=== PATIENT | male | born 1940 | race Caucasian/White ===

== ENCOUNTER 2018-02-01 06:23 | Observation (INO) | payer MEDICARE, OTHER, SELFPAY ==
[2018-02-01] VITALS (12 sets, daily range): BP systolic 142–170; BP diastolic 66–105; PULSE 55–89; RESP 15–18; TEMP 35.8–36.6; O2SAT 95–98; BMI 29.9; BMI 28.0; BMI 28.1
--- NOTE | 2018-02-01 06:31 | CT_ITS ---
STUDY: CT BRAIN WITHOUT CONTRAST REASON FOR EXAM: Male, 78 years old. Headache RADIATION DOSAGE (If Supplied By Facility): CTDIvol = ( 44.99 ) mGy, DLP = ( 812.98 ) mGycm TECHNIQUE: Transaxial CT imaging of the brain was performed without administration of intravenous contrast material. Individualized dose optimization techniques were used for this CT. COMPARISON: None. FINDINGS: Normal soft tissue structures. Normal calvarium. There is moderate cerebral atrophy with widening of the extra-axial spaces and ventricular dilatation. There are areas of decreased attenuation within the white matter tracts of the supratentorial brain, consistent with microvascular disease changes. Normal basal ganglia and thalami. Normal brainstem. There is moderate cerebellar atrophy. There is no intracranial hemorrhage. There are no findings of an acute ischemic infarction. Normal visualized paranasal sinuses. CT/Brain/Head without Contrast IMPRESSION: There is chronic involutional and ischemic change. There is NO hemorrhage, edema, mass, mass effect or midline shift. Electronically Signed: Lane Rodriguez MD at 7:18 EDT , Service support ,
--- NOTE | 2018-02-01 06:31 | EKG12_ITS ---
Test Reason : Blood Pressure : / mmHG Vent. Rate : 074 BPM Atrial Rate : 074 BPM P-R Int : 170 ms QRS Dur : 138 ms QT Int : 456 ms P-R-T Axes : 042 -51 -02 degrees QTc Int : 506 ms Sinus rhythm with Premature atrial complexes Right bundle branch block Left anterior fascicular block Bifascicular block Abnormal ECG Confirmed by MISSY WALSH, SANDRA ([id number]), science editor TERI PENA ([id number] on 02/04/2018 1:43:39 PM Referred By: ROMA Confirmed By:SANDRA LOUIS MD
[2018-02-01 06:41] LABS: Bedside Glucose 200 mg/dL (70-110)
--- NOTE | 2018-02-01 06:52 | ED.DCSUM_ITS ---
- ER Visit Summary Date of Service: 02/01/18 Chief Complaint: Arrived by ambulance with chief complaint of headache, nausea and vomiting, problems ambulating History of Present Illness: The patient is a 78 M who was awakened from sleep may be at 3 AM versus 4 AM with occipital headache, nausea and vomiting, diaphoresis problems with balance. He is a poor informant. Questions were asked multiple times. Presently he complains of occipital headache and not feeling right. After exiting the room I was told he complained of chest pain. He apparently has history of hypertension and is a former smoker. states he quit 20 years ago. Physical Examination: Vital signs noted and blood pressure is elevated 170/99. NIH is difficult to assess. He has a visual field cut uncertain whether he has a right superior quadrantanopsia versus right homonymous hemianopia. Even after demonstration to inform patient how to perform finger-nose to finger he initially was able to touch his nose then my finger on the right side; however after first attempt and with left upper extremity he would only touch my finger. He had difficulty touching the tip with the right side. He did not comprehend heel to reed. DTRs symmetric pros no clonus. Babinski testing patient withdraws. Multiple techniques to prevent withdrawal were unsuccessful. Test Results: EKG reveals a sinus rhythm with frequent premature atrial complexes. IA interval is 170 ms. QRS duration is 138 ms. There is evidence of a right bundle branch block and left anterior fascicular block. QT interval is slightly prolonged. CBC is unremarkable. Basic metabolic panel is significant for glucose 182. Wccwg-ka-cury glucose was 200. GFR is 60 with a creatinine 1.24. Coags are pending Emergency Department Course and Treatment: With history of abrupt onset of waking patient from sleep with vertigo visual disturbance need to evaluate for cerebellar hemorrhage versus posterior circulatory stroke. Since elderly past history uncertain CT of the head was obtained to evaluate for bleed any obvious stroke. CTA was not ordered since onset is unknown and NIH is low. Treatment Plan: Patient was made n.p.o. Stroke order set was initiated. Patient was taken to radiology suite after vomiting controlled to evaluate for hemorrhage versus ischemic event. Disposition: Admission to [facility] versus transfer, time of decision 06 Impression: 1. Vertigo with right-sided visual field cut suspect posterior circulatory stroke 2. Hypertension 3. Hyperglycemia This note was generated with Dragon dictation software. It may contain incorrect words, spelling, and punctuation that were not noted in review of the chart prior to signing ED Disposition - Plan for ED Patient: Chief Complaint: Headache Referrals: Sebastián Garcia MD [Primary Care Provider] -
[2018-02-01 06:53] LABS: Absolute Lymphocyte Count 0.81 X10^3/ul (0.83-4.51); Absolute Neutrophil Count 7.6 X10^3/uL (2.0-7.7); Eosinophil# 0.06 X10^3/uL; Eosinophils% 0.7 % (0-5); Hematocrit 41.1 % (40-54); Hemoglobin 14.1 g/dl (13.0-16.5); Lymphocyte # 0.81 X10^3/ul (4.0); Lymphocyte % 9.1 % (19-41); Mean Corp Hgb Conc 34.3 g/gl (32-36); Mean Corpuscular Volume 93.2 fL (80-94); Mean Platelet Vol. 9.8 fl (6.2-12.0); Monocyte# 0.34 X10^3/uL; Monocyte% 3.8 % (0-10); Neutrophil # 7.64 X10^3/uL (2.7-7.7); Neutrophil % 86.2 % (47-70); Platelet Count 189 K/mm3 (150-450); RBC Distribution Width CV 12.6 % (11.6-14.6); RBC Distribution Width SD 42.5 fl (35.1-43.9); Red Blood Count 4.41 M/mm3 (4.6-6.2); White Blood Count 8.9 K/mm3 (4.4-11.0)
[2018-02-01 06:54] LABS: BUN 26 mg/dL (7-18); Calcium,Total 8.5 mg/dL (8.5-10.1); Chloride 108 mmol/L (98-107); Creatinine, Serum 1.24 mg/dL (0.70-1.30); EST Glomerular Filtration Rate 60 mL/min (>60); Est Glom Filt Rate - Afr Amer 72 mL/min (>60); Estimated Creatinine Clearance 45.16 ml/min; Glucose 182 mg/dL (74-106); Potassium 3.9 mmol/L (3.5-5.1); Sodium Level 140 mmol/L (136-145)
[2018-02-01 06:55] LABS: Anion Gap 8 (5-15)
[2018-02-01] MEDS: Ondansetron 4 MG/2 ML Vial IV (06:56)
[2018-02-01 06:58] LABS: POSITIVE COUNT NO; POSITIVE DIFFERENTIAL NO; POSITIVE MORPHOLOGY NO
[2018-02-01 07:04] LABS: International Normalized Ratio 1.1; Prothrombin Time (Protime)PT. 14.1 SECONDS (11.7-14.9)
[2018-02-01 07:05] LABS: Partial Thromboplast Time 25.9 Seconds (24.1-36.2)
--- NOTE | 2018-02-01 08:04 | MRI_ITS ---
STUDY: MRI BRAIN WITHOUT CONTRAST REASON FOR EXAM: Male, 78 years old. CVA. Headache. Blurred vision. Dizzy. TECHNIQUE: Standardized multiplanar fat and water weighted pulse sequences were obtained. COMPARISON: CT head without contrast 02/01/2018. FINDINGS: No restricted diffusion to suspect acute or subacute ischemic infarct. Normal size of the ventricles and extra-axial spaces for the patient's age. Multiple periventricular white matter T2 FLAIR hyperintensity foci in both cerebral hemispheres. They're confluent in the forceps major. 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 Normal bilateral basal ganglia. Normal thalami. There is no extra-axial fluid accumulation. Normal flow voids within the major intracranial circulation suggesting patency by spin echo criteria. Normal sella turcica, pituitary gland, infundibular stalk, optic chiasm and hypothalamus. Normal tectal plate and pineal gland. Normal midbrain, annita and medulla. Normal cerebellum. Normal basal cisterns. Normal bilateral temporal bones. Normal bilateral internal auditory canals. No demonstrated orbital abnormality, within the constraints of a routine brain study. Normal visualized paranasal sinuses. Normal calvarium and skull base. Normal visualized soft tissue structures. Normal visualized upper cervical spine. MRI/Brain without Contrast IMPRESSION: 1. No MRI evidence of acute or subacute ischemic infarct. 2. Chronic white matter ischemic changes in both cerebral hemispheres. 3. 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 Electronically Signed: Toby Smith MD at 12:37 EDT , Service support ,
--- NOTE | 2018-02-01 08:04 | ECHOD_ITS ---
Reason For Study: TIA/Stroke Procedure This was a 2D Doppler, Color Flow transthoracic echocardiogram. Exam performed portable in patient room. Left Ventricle Normal LV size. Left ventricular systolic function is normal. The estimated ejection fraction is 60 %. Transmitral diastolic flow velocities suggest mild (stage 1) diastolic dysfunction (reversed pattern). No regional wall motion abnormalities noted. Right Ventricle Normal RV size. Normal systolic function. Atria Normal left atrium. Normal right atrium. Hypermobile atrial septum. Mitral Valve Normal mitral valve. Mild (1+) eccentric mitral valve insufficiency. Tricuspid Valve Normal tricuspid valve. Mild (1+) tricuspid valve insufficiency. Pulmonary artery systolic pressure is 34 mmHg. Aortic Valve Normal aortic valve. Trisinus/trileaflet aortic valve. Mild (1+) aortic valve insufficiency. Pulmonic Valve Normal pulmonic valve. Great Vessels Mildly dilated aortic root. The pulmonary artery is normal size. Normal inferior vena cava. Pericardium/Pleural No pericardial effusion. Medication Performed a rapid injection of agitated mix of 9 cc saline and 1cc air to assess for atrial septal defect. MMode/2D Measurements & Calculations LVIDd: 5.4 cm IVSd: 1.3 cm Ao root diam: 3.6 cm LVIDs: 3.9 cm LVPWd: 1.1 cm RVDd: 2.7 cm FS: 27.8 % LAV(MOD-bp): 55.0 ml LVAd ap4: 35.3 cm2 SV(MOD-sp4): 66.0 ml LAV(MOD-bp) Indexed: 27.9 ml/m2 EDV(MOD-sp4): 115.9 ml LAV(MOD-sp2): 51.8 ml EDV(sp4-el): 118.3 ml LAV(MOD-sp4): 57.8 ml LVAs ap4: 19.9 cm2 ESV(MOD-sp4): 49.9 ml ESV(sp4-el): 46.4 ml EF(MOD-sp4): 56.9 % EF(sp4-el): 60.8 % SV(sp4-el): 71.9 ml LA A4 area: 20.5 cm2 RA A4 area: 17.3 cm2 Doppler Measurements & Calculations MV E max demarcus: 69.3 cm/sec Lat Peak E' Demarcus: 6.1 cm/sec Med Peak E' Demarcus: 5.5 cm/sec MV A max demarcus: 125.9 cm/sec E/E' lat: 11.3 E/E' med: 12.6 MV E/A: 0.55 Ao V2 max: 152.9 cm/sec AI max demarcus: 471.4 cm/sec LV V1 max: 108.4 cm/sec Ao max P.4 mmHg AI max P.9 mmHg LV V1 max P.7 mmHg Ao V2 mean: 107.3 cm/sec AI dec slope: 172.5 cm/sec2 Ao mean P.0 mmHg AI P1/2t: 800.3 msec Ao V2 VTI: 33.4 cm PA V2 max: 105.7 cm/sec PI end-d demarcus: 111.5 cm/sec TR max demarcus: 264.7 cm/sec TR max P.0 mmHg Interpretation Summary Hypermobile atrial septum. Normal LV size. Left ventricular systolic function is normal. The estimated ejection fraction is 60 %. Transmitral diastolic flow velocities suggest mild (stage 1) diastolic dysfunction (reversed pattern). Mild (1+) eccentric mitral valve insufficiency. Mild (1+) tricuspid valve insufficiency. Ordering Physician: Eladia Chau Referring Physician: Sebastián Garcia Performed By: Maria Luz Grover, MARLENE, RVT
--- NOTE | 2018-02-01 08:04 | MRI_ITS ---
STUDY: MRA OF THE HEAD WITHOUT CONTRAST REASON FOR EXAM: Male, 78 years old. Blurred vision, headache and dizziness. TECHNIQUE: 3-D digj-sa-iramek (TOF) imaging was performed with MIPs. The study was performed unenhanced. COMPARISON: CTA of the head dated February 01, 2018. FINDINGS: Normal bilateral petrous carotid arteries. Normal right cavernous carotid artery with a normal supraclinoid bifurcation. Normal left cavernous carotid artery with a normal supraclinoid bifurcation. There is hypoplastic development of the right A1 segment of the anterior cerebral arteries with an atretic but intact artery. Normal left A1 segments of the anterior cerebral artery. Normal intact anterior communicating artery (ACOM). Normal bilateral A2 segments of the anterior cerebral arteries. There is irregularity of the right M1 and M2 branches with minimal luminal narrowing, suggesting atherosclerotic plaque formation, without an occlusion. There is irregularity of the left M1 and M2 branches with minimal luminal narrowing, suggesting atherosclerotic plaque formation, without an occlusion. There is a persistent origin of the right posterior cerebral artery with absence of the P1 segment of the right posterior cerebral artery. Normal left posterior communicating artery (PCOM). There is limited visualization of the vertebral arteries particularly the right which is atretic. This is better seen on the recent CTA. The left vertebral artery is dominant. There is thrombus within the distal left intradural vertebral artery. Much of the LEFT V3 and V4 segment does not have normal flow and is not well seen on this study. Thrombus is also visible in the basilar artery. There is limited visualization of the superior cerebellar arteries. There is absence of the right P1 segment of the posterior cerebral arteries with a normal left P1 segment. Normal visualized bilateral P2 and P3 segments of the posterior cerebral arteries. There is no demonstrated aneurysm of the telida of [place]. There are involutional changes of the brain. MRI/MRA Head ONLY without Contrast IMPRESSION: 1. Thrombus is visible in the distal left V4 segment with limited visualization of the left V3 and most of the V4 segment. 2. Thrombus is visible in the proximal basilar artery. N.B. : The above information has been verbally conveyed by Gabby Haskins MD to Dr. Kandi MD, on 02/01/2018 11:48:27 (ET). Electronically Signed: Gabby Haskins MD at 11:42 EDT , Service support ,
--- NOTE | 2018-02-01 08:04 | MRI_ITS ---
STUDY: MRA NECK WITHOUT CONTRAST REASON FOR EXAM: Male, 78 years old. CVA. Headache. Blurred vision. Dizziness. TECHNIQUE: Source images were obtained, MIPs were performed. The study was performed unenhanced. COMPARISON: None. FINDINGS: RIGHT CAROTID ARTERIES: Normal right common carotid artery (CCA). Normal right internal carotid bulb. Normal origin of the right internal carotid (ICA) artery without a hemodynamically significant stenosis. Normal visualized cervical portion of the right internal carotid artery. Normal origin of the right external carotid artery (ECA). LEFT CAROTID ARTERIES: Normal left common carotid artery (CCA). Normal left internal carotid bulb. Normal origin of the left internal carotid (ICA) artery without a hemodynamically significant stenosis. Normal visualized cervical portion of the left internal carotid artery. Normal origin of the left external carotid artery (ECA). VERTEBRAL ARTERIES: Normal right vertebral artery. Limited visualization of the left vertebral artery. MRI/MRA Neck without Contrast IMPRESSION: 1. Limited MRA neck due to motion. 2. Normal bilateral common carotid arteries, bilateral common carotid bifurcations and bilateral cervical internal carotid arteries. 3. Normal right vertebral artery. 4. Suboptimal visualization of the left vertebral artery. Electronically Signed: Toby Smith MD at 12:39 EDT , Service support ,
--- NOTE | 2018-02-01 08:27 | PCM.HP.STD ---
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), not intractable (4) HTN (hypertension) Status: Chronic Qualifiers: Hypertension type: essential hypertension Qualified Code(s): I10 - Essential (primary) hypertension (5) HLD (hyperlipidemia) Status: Chronic Qualifiers: Hyperlipidemia type: unspecified Qualified Code(s): E78.5 - Hyperlipidemia, unspecified (6) BPH (benign prostatic hyperplasia) Status: Chronic Qualifiers: Lower urinary tract symptom presence: unspecified whether lower urinary tract symptoms present Qualified Code(s): N40.0 - Benign prostatic hyperplasia without lower urinary tract symptoms History of Present Illness Date of Admission: 02/01/18 Chief Complaint: Visual field defects, headache, instability The patient is a 78 y/o M w/ PMHx: HTN, HLD, BPH, Former Tobacco use who presents to the [facility] ED on 02/01/18 with history of onset at ~ 3-4 am, awakening him from sleep severe aching, pulsing in the top and posterior head BL, waxing and waning with with difficulty with vision on the right side noted to be blurry per patient, instability with balance issues with attempts to walk prompting eventual transition to the ED. He also noted that with onset of the symptoms he had nausea, emesis as well as diaphoresis. He was able to answer orientation questions in the ED but this required asking the same question several times and he did admit to not feeling his baseline self. In the emergency room workup included T 96.5, heart rate 73, BP 160/105, respiratory rate 15, 95% on room air, CBC unremarkable, coags unremarkable, BMP with glucose 182 with follow-up heme globin A1c 5.8%, troponin less than 0.015, TSH 0.89, EKG with right bundle branch block and left anterior fascicular block with no acute findings of ischemia, CT of the head with chronic changes. In the ED patient administered normal saline, Zofran. Past Medical History Past Medical History (Chronic Problems): Chronic Problems HTN (hypertension) (Chronic) HLD (hyperlipidemia) (Chronic) BPH (benign prostatic hyperplasia) (Chronic) Allergies No Known Allergies Allergy (Verified 02/01/18 06:25) Home Medications: Ambulatory Orders Medication Instructions Recorded Amlodipine Besylate [Norvasc] 2.5 mg PO DAILY 02/01/18 Atorvastatin Calcium [Lipitor] 10 mg PO DAILY 02/01/18 Hydroxyzine HCl 25 mg PO Q8H PRN 02/01/18 Tamsulosin HCl [Flomax] 0.4 mg PO QHS 02/01/18 Surgical History: appendectomy Psychiatric History: No pertinent psych hx Lives: Spouse/ Significant Other - Patient has a girlfriend with whom he intermittently lives, they each have a house and change intermittent. Smoking Status: Former smoker - Quit 20-30 years prior. Tobacco Use: Non-smoker Alcohol: None Drugs: None - *Family History Maternal History Items: Cancer - Mother w/ history of Breast CA. Paternal History Items: - - Father w/ history of MVA at young age w/ complications related. Review of Systems Constitutional: Reports: Malaise, Weakness, Fatigue HEENT: Reports: Head Aches, Visual Changes. Denies: Sinus Congestion, Sinus Drainage Cardiovascular: Denies: Chest Pain, Palpitations Respiratory: Denies: Cough, Shortness of breath at rest, Sputum production Gastrointestinal: Reports: Nausea, Vomiting. Denies: Abdominal Pain Genitourinary: Denies: Dysuria Musculoskeletal: Denies: Joint Pain, Joint Tenderness Skin: Denies: Rash, Wounds Neurological: Reports: Balance problems, Confusion. Denies: Focal weakness, Numbness, Tingling Psychiatric: Denies: Anxiety, Depression, Homicidal Ideations, Suicidal Ideations Hematologic/ Lymphatic: Denies: Easy Bruising, Easy Bleeding VTE Information - Inpt Only VTE Present on Admission: No VTE Mechan Device Prophylaxis: SCD's VTE Pharm Prophylaxis ordered?: Yes Patient Problems: Active and Suspected Problems TIA (transient ischemic attack) (Acute) Vertigo (Acute) Headache (Acute) Subjective: Seated upright in ED bed, fatigued appearance, notes headache returning and points to the top and posterior aspect of his head. Objective: Physical Examination: General: awake, alert, oriented x 3/4 with incorrect year and cooperative, seated upright in the ED, does note ongoing headache and appears mildly uncomfortable. Skin: normal color, turgor, no icterus, cyanosis. HEENT: AT/NC, EOMI, PERRLA, only dry MM, no carotid bruits or JVD noted. Lungs: Diminished breath sounds bilaterally, poor effort, no rales, ronchi or wheezing. Heart: Regular rate and rhythm; no gallop, rub audible. Abdomen: soft, NTTP, ND, normal BS, no HSM. Extremities: no cyanosis, clubbing, or edema. Neurological: patient awake, alert, oriented x 3/4; cognitive function mildly reduced, is not currently baseline intact; pupils equally reactive to light and accomodation; cranial nerves II-XII grossly normal, peripheral arcos intact currently although prior ED physician did have concern about right lateral arcos, sensation appropriate, finger to nose and heel to reed appropriate, strength intact, no focal deficits, negative right Babinski, equivocal left Babinski. Psychiatric: affect appears to be flat, no acute evidence of depressive or anxiety feelings. - Physical Exam Vital Signs Temp Pulse Resp BP Pulse Ox 96.5 F L 89 16 158/99 H 97 02/01/18 06:25 02/01/18 07:31 02/01/18 07:31 02/01/18 07:31 02/01/18 07:31 Oxygen Flow Rate (L/min) 2 Oxygen Delivery Method Nasal Cannula Weight: 184 lb 8.43 oz Body Mass Index (BMI) 28.0 Finger Stick Blood Glucose 200 Laboratory Tests Past 24 Hrs 02/01/18 02/01/18 02/01/18 06:30 06:30 06:30 WBC 8.9 RBC 4.41 L Hgb 14.1 Hct 41.1 MCV 93.2 MCH 32.0 MCHC 34.3 RDW 12.6 RDW Differential 42.5 Plt Count 189 MPV 9.8 Immature Gran % (Auto) 0.200 Neut % (Auto) 86.2 H Lymph % (Auto) 9.1 L Mobile % (Auto) 3.8 Eos % (Auto) 0.7 Baso % (Auto) 0.0 Absolute Neuts (auto) 7.6 Absolute Lymphs (auto) 0.81 L Total Counted Not Reportable PT 14.1 INR 1.1 APTT 25.9 Sodium 140 Potassium 3.9 Chloride 108 H Carbon Dioxide 24.0 Anion Gap 8 BUN 26 H Creatinine 1.24 Estim Creat Clear Calc 45.16 Est GFR (MDRD) Af Amer 72 Est GFR (MDRD) Non-Af 60 BUN/Creatinine Ratio 21.0 H Glucose 182 H Hemoglobin A1c Calcium 8.5 Magnesium Troponin I < 0.015 TSH 02/01/18 02/01/18 06:30 06:30 WBC RBC Hgb Hct MCV MCH MCHC RDW RDW Differential Plt Count MPV Immature Gran % (Auto) Neut % (Auto) Lymph % (Auto) Mobile % (Auto) Eos % (Auto) Baso % (Auto) Absolute Neuts (auto) Absolute Lymphs (auto) Total Counted PT INR APTT Sodium Potassium Chloride Carbon Dioxide Anion Gap BUN Creatinine Estim Creat Clear Calc Est GFR (MDRD) Af Amer Est GFR (MDRD) Non-Af BUN/Creatinine Ratio Glucose Hemoglobin A1c Pending Calcium Magnesium Pending Troponin I TSH Pending POC Glucose 02/01/18 06:32 POC Glucose 200 H Assessment/Plan All Active Problems TIA (transient ischemic attack) (Acute) Vertigo (Acute) Headache (Acute) The patient is a 78 y/o M w/ PMHx: HTN, HLD, BPH, Former Tobacco use who presents to the [facility] ED on 02/01/18 with history of onset at ~ 3-4 am, awakening him from sleep severe aching, pulsing in the top and posterior head BL, waxing and waning with with difficulty with vision on the right side noted to be blurry per patient, instability with balance issues with attempts to walk prompting eventual transition to the ED. (1) Visual Field Defects, Transient, Headache, Imbalance concerning for TIA/CVA versus Vertigo: ED evaluation w/ T 96.5, heart rate 73, BP 160/105, respiratory rate 15, 95% on room air, CBC unremarkable, coags unremarkable, BMP with glucose 182 with follow-up heme globin A1c 5.8%, troponin less than 0.015, TSH 0.89, EKG with right bundle branch block and left anterior fascicular block with no acute findings of ischemia, CT of the head with chronic changes. Will admit to PCU, will obtain MRI Brain, MRA Head and Neck, ECHO, PT/OT/Speech/Nutrition evaluation per protocol. Will consult Neurology for evaluation. Will allow permissive HTN, maintain on asa, statin w/ AM FLP, fall precautions. Mag and TSH obtained, normal. (2) Hypertension: Permissive pending above work-up. (3) Hyperlipidemia: Continue home statin regimen, FLP to be obtained and alter regimen if appropriate. (4) BPH: Continue home flomax regimen. (5) Former Tobacco use: Encouraged continued tobacco cessation. (6) Hyperglycemia: Admission glucose 182, HgbA1c pending, nutrition consultation for education and teaching. (7) DVT Prophylaxis: SCDs, lovenox. Code Visit OBSV E&M: [id number] Initial observation care L3
[2018-02-01 08:29] LABS: Hemoglobin A1c 5.8 % (4.2-6.3)
[2018-02-01] MEDS: 0.9% Normal Saline 1,000 ML 100 ML IV ×2 (08:35→18:42)
[2018-02-01] MEDS: Acetaminophen 325 MG Tablet 650 MG PO (08:35)
[2018-02-01 08:37] LABS: Thyroid Stim Hormone (TSH) 0.89 uIU/mL (0.358-3.74)
--- NOTE | 2018-02-01 09:52 | CT_ITS ---
STUDY: CTA OF THE BRAIN REASON FOR EXAM: Male, 78 years old. Basilar stenosis, occlusion, headache, dizziness RADIATION DOSAGE (If Supplied By Facility): CTDIvol = ( 24.82 ) mGy, DLP = ( 837.23 ) mGycm TECHNIQUE: CT angiography was performed with a multi-detector CT scanner. Data acquisition was obtained from the skull base through the vertex following intravenous administration of 100 ml of Isovue-370. MIP images were reconstructed from the axial data set. Post-processing of the angiographic images was performed, with multiplanar reformation and 3D reconstruction. Individualized dose optimization techniques were used for this CT. COMPARISON: CTA neck same date. MRA neck and head and MRI brain same date. CT head 10 1936. FINDINGS: There is mild calcified plaque of the carotid bulbs and bifurcations without contrast stenosis or dissection. Normal right vertebral artery cervical and intracranial portions. There is occlusion of the left vertebral artery in its mid cervical course. It is reconstituted within the transcranial segment 3 via collateral arteries. It is patent thereafter to the basilar artery intracranially. There is a tubular filling defect within the uppermost portion of the intracranial segment 4 left vertebral artery just proximal to the junction with the basilar artery. This measures approximately 5.6 x 3 mm and is most consistent with a focus of thrombus or atheroma contributing to moderate stenosis of the vessel. The right-sided intracranial vertebral artery is diminutive and terminates into small cerebellar pontine divisions. The basilar artery is normal. The posterior cerebral arteries are normal. The communicating arteries, anterior and middle cerebral arteries are normal. There are mild to moderate features of age-related atrophy and chronic micro-vascular ischemic disease of the white matter. 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 There is no evidence of posterior fossa infarct at this time. The dural venous sinuses and major venous tributaries enhance and arborizes normally. 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 Filling defect within the uppermost portion of the left vertebral artery just proximal to the junction with the basilar artery. The filling defect measures approximately 5.6 x 3 mm. This may be a fragment of atheroma, or thrombus. It does not occlude the vessel. Moderate stenosis. Potentially at risk for distal embolization. Electronically Signed: Santos Lyles, at 11:44 EDT Tel , Service support ,
--- NOTE | 2018-02-01 09:52 | CT_ITS ---
STUDY: CTA NECK WITH CONTRAST REASON FOR EXAM: Male, 78 years old. Evaluate for basilar artery stenosis. Patient has headache and dizziness. RADIATION DOSAGE (If Supplied By Facility): CTDIvol = ( 24.82 ) mGy, DLP = ( 837.23 ) mGycm TECHNIQUE: CT angiography with multi-detector data acquisition was performed from the aortic arch to the skull base following intravenous administration of 100 ml of Isovue 370 contrast. MIP images were reconstructed from the axial data set. Post-processing of the angiographic images was performed, with multiplanar reformation and 3D reconstruction. Individualized dose optimization techniques were used for this CT. COMPARISON: None. FINDINGS: AORTIC ARCH: There is atherosclerotic calcific plaque formation of the aortic arch and great vessels arising from the aortic arch, without a hemodynamically significant stenosis. There is a normal origin of the brachiocephalic, left common carotid, and left subclavian arteries. The left vertebral artery arises from the aortic arch. RIGHT CAROTID ARTERIES: Normal right common carotid artery (CCA). There is mild atherosclerotic plaque formation with minimal narrowing of the right carotid bulb. There is mild atherosclerotic plaque formation of the origin of the right internal carotid artery with less than 50% cross sectional diameter stenosis. There is atherosclerotic tortuous elongation of the cervical portion of the right internal carotid artery. Normal origin of the right external carotid artery (ECA). LEFT CAROTID ARTERIES: Normal left common carotid artery (CCA). There is mild atherosclerotic plaque formation with minimal narrowing of the left carotid bulb. There is mild atherosclerotic plaque formation of the origin of the left internal carotid artery with less than 50% cross sectional diameter stenosis. There is atherosclerotic tortuous elongation of the cervical portion of the left internal carotid artery. Normal origin of the left external carotid artery (ECA). VERTEBRAL ARTERIES: There is apparent thrombosis of the left cervical vertebral artery for most of its course. The origin of the left vertebral artery does enhance but there is no appreciable enhancement once it enters the cervical foramina. The right vertebral artery is atretic but patent throughout the neck. NECK ANATOMY: Normal bilateral parotid glands. Normal bilateral strategic planner spaces. Normal bilateral parapharyngeal spaces. Normal bilateral carotid spaces. Normal bilateral sublingual and submandibular glands and spaces. Normal visualized nasopharynx. Normal retropharyngeal space. Normal perivertebral space. Normal visualized bilateral faucial tonsils. The visualized tongue, tongue base and oropharynx are normal. The visualized cervical lymph nodes (levels I-) are within normal size limits, and maintain normal morphology. There is no demonstrated solid or cystic mass lesion. There is no abnormal contrast enhancement. Normal epiglottis, bilateral vallecula and hypopharynx. The pre-epiglottic and paraglottic adipose spaces are normal. Normal visualized bilateral piriform sinuses, aryepiglottic folds, vocal cords, and arytenoid-cricoid articulations. Normal subglottic trachea. There is enlargement of the left lobe of thyroid with heterogeneous attenuation suggesting a goiter. There are several nodular areas within the left lobe of thyroid. Normal visualized pulmonary apices. Normal visualized paranasal sinuses. The bones appear osteopenic. There is multilevel degenerative disc disease and degenerative arthropathy of the cervical spine. There is a small right maxillary mucous retention cyst. CT/CTA Neck W/WO Contrast IMPRESSION: 1. Apparent almost complete thrombosis of the LEFT cervical vertebral artery. 2. No CTA evidence for dissection. Electronically Signed: Gabby Haskins MD at 11:27 EDT , Service support ,
[2018-02-01 11:25] LABS: Bedside Glucose 128 mg/dL (70-110)
--- NOTE | 2018-02-01 11:52 | CASEMGMT ---
Transfer Note [employer] facilites using [employer] website, [employer], [facility], [facility], .
[2018-02-01] MEDS: Famotidine 20 MG Tablet PO (11:56)
[2018-02-01] MEDS: Enoxaparin 40 MG/0.4 ML Syringe SC (11:56)
[2018-02-01] MEDS: Aspirin 81 MG TAB.CHEW PO (11:56)
--- NOTE | 2018-02-01 11:58 | PCM.DC.SUM ---
Discharge Date and Diagnosis - Problem List Patient Problems: Active and Suspected Problems TIA (transient ischemic attack) (Acute) Vertigo (Acute) Headache (Acute) Date of Admission: 02/01/18 Date of Discharge: 02/01/18 - Primary Discharge Diagnosis (1) Visual Field Defects, Transient, Headache, Imbalance, no Acute Stroke, felt secondary to Thrombosis L Vertebral Artery proximal to the Junction with Basilar Artery with possible thrombus present and moderate stenosis w/ risk for distal embolization (2) Hypertension (3) Hyperlipidemia (4) BPH (5) Former Tobacco use (6) Hyperglycemia, stress response, normal HgBA1c - Secondary Discharge Diagnosis HTN (hypertension) (Chronic) HLD (hyperlipidemia) (Chronic) BPH (benign prostatic hyperplasia) (Chronic) Former Tobacco use Hospital Course and Treatment Imaging Results: 02/01/18 06:31 Brain/Head without Contrast [CT] Stat 02/01/18 08:04 Echo Complete [ECHO] Routine Brain without Contrast [MRI] Stat MRA Head ONLY without Contrast [MRI] Stat MRA Neck without Contrast [MRI] Stat 02/01/18 09:52 CTA Head W/WO Contrast [CT] Urgent CTA Neck W/WO Contrast [CT] Urgent Dr. Rooney Neurology Operations: None Procedures: 2-D Echocardiogram, EKG Summary of Care Provided: The patient is a 78 y/o M w/ PMHx: HTN, HLD, BPH, Former Tobacco use who presented to the [facility] ED on 02/01/18 with history of onset at ~ 3-4 am, awakening him from sleep severe aching, pulsing in the top and posterior head BL, waxing and waning with with difficulty with vision on the right side noted to be blurry per patient, instability with balance issues with attempts to walk prompting eventual transition to the ED. He also noted that with onset of the symptoms he had nausea, emesis as well as diaphoresis. He was able to answer orientation questions in the ED but this required asking the same question several times and he did admit to not feeling his baseline self. In the emergency room workup included T 96.5, heart rate 73, BP 160/105, respiratory rate 15, 95% on room air, CBC unremarkable, coags unremarkable, BMP with glucose 182 with follow-up heme globin A1c 5.8%, troponin less than 0.015, TSH 0.89, EKG with right bundle branch block and left anterior fascicular block with no acute findings of ischemia, CT of the head with chronic changes. In the ED patient administered normal saline, Zofran. The patient was admitted to PCU, obtained MRI Brain w/ no MRI evidence of acute or subacute ischemic infarct with chronic white matter ischemic changes in both cerebral hemispheres with old lacunar cystic infarct in the right posterior periventricular white matter, MRA Head with thrombus visible in the distal left V4 segment with limited visualization of the left V3 and most of the V4 segment, thrombus visible in the proximal basilar artery and Neck limited secondary to motion with normal bilateral common carotid arteries, bilateral common carotid bifurcations and bilateral cervical internal carotid arteries with a normal right vertebral artery with a suboptimal as visualization of the left vertebral artery, secondary to findings on MRA head obtained follow-up CTA head and neck per neurology direction with CTA head with thrombus with occlusion of the left vertebral artery, mid to upper cervical, reconstituting at the skull base via small collateral vessels, filling defect within the uppermost portion of the left vertebral artery just proximal to the junction with the basilar artery, measuring a proximally 5.6 x 3 mm possibly a fragment of atheroma or thrombus with moderate stenosis and potential for risk of distal embolization and CTA of the neck with the parents almost complete thrombosis of the left cervical vertebral artery with no CT evidence for dissection, ECHO ordered and obtained with results pending at transfer, PT/OT/Speech/Nutrition evaluation per protocol. Neurology consulted and evaluated patient with concern for findings on imaging therefore recommendation for transfer to tertiary facility. Upon discussion with tertiary facility and review of imaging patient was per their request administered Plavix load 300 mg p.o. x1 in addition to his aspirin 81 mg, hold on any blood pressure regimen and continuation of patient statin as well as IV fluids. Discussed patient status and concerns per neurology with family and patient in transfer to arranged. Patient and family were told that there may be no intervention performed but medical management pending neurology review of all imaging studies. Patient remained in similar presentation to admission with no neurological changes but ongoing complaints of headache. Home Medications: Medications to take at Discharge Amlodipine Besylate [Norvasc] 2.5 mg PO DAILY 02/01/18 Atorvastatin Calcium [Lipitor] 10 mg PO DAILY 02/01/18 Hydroxyzine HCl 25 mg PO Q8H PRN 02/01/18 Tamsulosin HCl [Flomax] 0.4 mg PO QHS 02/01/18 Primary Care Physician: Sebastián Garcia MD [Primary Care Provider] - Disposition: Acute care Hospital Minutes spent on discharge:: 60 Patient Condition:: Guarded Medical Necessity - Tobacco Use Smoking Status: Former smoker Meaningful Use Info Meaningful Use Diagnoses (Choose all that apply): None applicable Code Visit OBSV E&M: 09690 Observ/hosp same date L3
[2018-02-01] MEDS: Clopidogrel Bisulfate 300 MG Tablet PO (13:18)
--- NOTE | 2018-02-01 14:32 | CON.PCM_ITS ---
Problem List (1) Vertigo Status: Acute (2) VBI (vertebrobasilar insufficiency) Status: Acute Reason for Consult Date of Consultation: 02/01/18 Reason for Consultation: dizziness History of Present Illness: The patient is a 78 year old M with PMH HTN, HLD, BPH, H/O prostate cancer admitted with dizziness. Per patient he woke up this morning (02/01/18) with dizziness, had difficulty walking, also complaints of occipital WHITEHEAD, nausea and visual blurriness. Denies any new onset focal weakness, sensory loss, complaints of generalized weakness and chest pain. He lives with his girl friend, does drive, denies any falls, does not use cane or walker to ambulate and does no need any assistance for his ADLs. He does not take ASA at baseline, since he felt he would bruise easily if he took ASA. [] Past Medical History Past Medical History (Chronic Problems): Chronic Problems HTN (hypertension) (Chronic) HLD (hyperlipidemia) (Chronic) BPH (benign prostatic hyperplasia) (Chronic) Allergies No Known Allergies Allergy (Verified 02/01/18 06:25) Home Medications: Ambulatory Orders Medication Instructions Recorded Amlodipine Besylate [Norvasc] 2.5 mg PO DAILY 02/01/18 Atorvastatin Calcium [Lipitor] 10 mg PO DAILY 02/01/18 Hydroxyzine HCl 25 mg PO Q8H PRN 02/01/18 Tamsulosin HCl [Flomax] 0.4 mg PO QHS 02/01/18 Surgical History: appendectomy Psychiatric History: No pertinent psych hx Lives: Spouse/ Significant Other - Patient has a girlfriend with whom he intermittently lives, they each have a house and change intermittent. Smoking Status: Former smoker Tobacco Use: Non-smoker Alcohol: None Drugs: None - *Family History Maternal History Items: Cancer - Mother w/ history of Breast CA. Paternal History Items: - - Father w/ history of MVA at young age w/ complications related. Review of Systems Constitutional: Reports: - - complete ROS negative except as documented in HPI Patient Problems: Active and Suspected Problems TIA (transient ischemic attack) (Acute) Vertigo (Acute) Headache (Acute) VBI (vertebrobasilar insufficiency) (Acute) - Physical Exam General: Alert HEENT: Normocephalic Neck: Supple Lungs: Normal air movement Cardiovascular: Normal S1, Normal S2 Abdomen: Bowel Sounds Present Extremities: No cyanosis Skin: No rashes Neurological: - - consious, alert, AoAx3, CN 2-12 grossly intact, power 5/5 all 4 extremities, no sensory loss, no cerebellar signs, gait deferred, Reflexes + B/L B/S/T/K/A. NIHSS 0 at present, mRS 0 at baseline Psych/Mental Status: Normal Affect Vital Signs Temp Pulse Resp BP Pulse Ox 97.7 F L 78 18 156/98 H 95 02/01/18 12:15 02/01/18 12:15 02/01/18 12:15 02/01/18 12:15 02/01/18 12:15 Oxygen Flow Rate (L/min) 2 Oxygen Delivery Method Room Air Weight: 83.7 kg Body Mass Index (BMI) 28.0 Finger Stick Blood Glucose 200 Intake and Output for Last 24 Hours 01/30/18 01/31/18 02/01/18 23:59 23:59 23:59 Intake Total 120 / 120 Output Total 300 / 300 Balance -180 / -180 Microbiology Past 72 Hours 02/01/18 10:49 Respiratory Panel (PCR) - Final Mucosa - Nasopharyngeal Laboratory Tests Past 24 Hrs 02/01/18 02/01/18 02/01/18 06:30 06:30 06:30 WBC 8.9 RBC 4.41 L Hgb 14.1 Hct 41.1 MCV 93.2 MCH 32.0 MCHC 34.3 RDW 12.6 RDW Differential 42.5 Plt Count 189 MPV 9.8 Immature Gran % (Auto) 0.200 Neut % (Auto) 86.2 H Lymph % (Auto) 9.1 L Morehouse % (Auto) 3.8 Eos % (Auto) 0.7 Baso % (Auto) 0.0 Absolute Neuts (auto) 7.6 Absolute Lymphs (auto) 0.81 L Total Counted Not Reportable PT 14.1 INR 1.1 APTT 25.9 Sodium 140 Potassium 3.9 Chloride 108 H Carbon Dioxide 24.0 Anion Gap 8 BUN 26 H Creatinine 1.24 Estim Creat Clear Calc 45.16 Est GFR (MDRD) Af Amer 72 Est GFR (MDRD) Non-Af 60 BUN/Creatinine Ratio 21.0 H Glucose 182 H Hemoglobin A1c Calcium 8.5 Magnesium Troponin I < 0.015 TSH 02/01/18 02/01/18 02/01/18 06:30 06:30 10:53 WBC RBC Hgb Hct MCV MCH MCHC RDW RDW Differential Plt Count MPV Immature Gran % (Auto) Neut % (Auto) Lymph % (Auto) Morehouse % (Auto) Eos % (Auto) Baso % (Auto) Absolute Neuts (auto) Absolute Lymphs (auto) Total Counted PT INR APTT Sodium Potassium Chloride Carbon Dioxide Anion Gap BUN Creatinine Estim Creat Clear Calc Est GFR (MDRD) Af Amer Est GFR (MDRD) Non-Af BUN/Creatinine Ratio Glucose Hemoglobin A1c 5.8 Calcium Magnesium 2.0 Troponin I < 0.015 TSH 0.89 02/01/18 12:50 WBC RBC Hgb Hct MCV MCH MCHC RDW RDW Differential Plt Count MPV Immature Gran % (Auto) Neut % (Auto) Lymph % (Auto) Morehouse % (Auto) Eos % (Auto) Baso % (Auto) Absolute Neuts (auto) Absolute Lymphs (auto) Total Counted PT INR APTT Sodium Potassium Chloride Carbon Dioxide Anion Gap BUN Creatinine Estim Creat Clear Calc Est GFR (MDRD) Af Amer Est GFR (MDRD) Non-Af BUN/Creatinine Ratio Glucose Hemoglobin A1c Calcium Magnesium Troponin I < 0.015 TSH POC Glucose 02/01/18 02/01/18 11:20 06:32 POC Glucose 128 H 200 H Assessment/Plan All Active Problems TIA (transient ischemic attack) (Acute) Vertigo (Acute) Headache (Acute) VBI (vertebrobasilar insufficiency) (Acute) The patient is a 78 year old M with PMH HTN, HLD, BPH, H/O prostate cancer admitted with dizziness. Per patient he woke up this morning (02/01/18) with dizziness, had difficulty walking, also complaints of occipital WHITEHEAD, nausea and visual blurriness. Denies any new onset focal weakness, sensory loss, complaints of generalized weakness and chest pain. He lives with his girl friend, does drive, denies any falls, does not use cane or walker to ambulate and does no need any assistance for his ADLs. He does not take ASA at baseline, since he felt he would bruise easily if he took ASA. Impression Possible VBI Left vert thrombus, VB junction thrombus Plan -ASA 81 mg PO once daily, Plavix load 300 mg PO once and then 75 mg PO once daily. Bleeding risks discussed -Lipitor -Given the CTA head/neck imaging, patient needs further evaluation with catheter angiogram. Consider transfer to tertiary center for possible intervention. -MRI brain- no acute stroke -MRA head/xjcl-siobdhil-nfyjvwgw to show thrombus in the visible in the distal left V4 segment with limited visualization of the left V3 and most of V4 segment and thrombus visible in the proximal basilar artery. -CTA head/neck reviewed-reported to show thrombosis with occlusion of the left vertebral artery, mid to upper cervical, reconstituting at the skull base via small collateral vessels, filling defect within the upper portion of the left vertebral artery just proximal to the junction with the basilar artery, filling defect measures approximately 5.6 x3 mm, may be a fragment of atheroma, or thrombus, it does not occlude the vessel, moderate stenosis, potentially at risk for distal embolization. -TTE- EF 60%, normal LA size -LDL-p, Zbc8x-1.8 -Patient counseled to quit smoking, he understands the same -Stroke risk factors discussed and stroke education provided -PT/OT -GI/DVT prophylaxis -Further medical management per primary team -Fall precautions -Follow up with Neurology as outpatient in 2-3 weeks -Please call with questions if any -Thank you for allowing us to participate in patient's care and management I spent 60 minutes taking history, doing physical examination, reviewing medical records, coordinating care and counseling the patient.
[2018-02-01 17:56] LABS: Bedside Glucose 87 mg/dL (70-110)
== END 2018-02-01 19:24 | disposition short-term general hospital (02) ==
LOC: ED 06:59 → PCU 07:34
PROVIDERS: Admitting Provider Family Medicine; Emergency Provider Emergency Medicine; Family Provider Family Medicine; PCP Family Medicine; Visit Provider Family Medicine
DX: G45.9 Transient cerebral ischemic attack, unspecified (principal); I10 Essential (primary) hypertension; E78.5 Hyperlipidemia, unspecified; N40.0 Benign prostatic hyperplasia without lower urinary tract symptoms; R73.9 Hyperglycemia, unspecified; Z79.899 Other long term (current) drug therapy; Z87.891 Personal history of nicotine dependence; I45.2 Bifascicular block; H53.9 Unspecified visual disturbance; G44.099 Other trigeminal autonomic cephalgias (TAC), not intractable
CPT/HCPCS: 36415; 70450; 70496; 70498; 70544; 70547; 70551; 80048; 82962; 83036; 83735; 84443; 84484; 85025; 85610; 85730; 87633; 93005; 93306; 96361; 96372; 96374; 97162; 97165; 97802; 99285; J7030; Q9967; A4216; J2405

== ENCOUNTER → 2018-02-23 13:55 | Outpatient (CLI) | payer MEDICARE, SELFPAY ==
[2018-02-23 14:17] LABS: International Normalized Ratio 2.3; Prothrombin Time (Protime)PT. 25.8 SECONDS (11.7-14.9)
== END ==
PROVIDERS: Family Provider Family Medicine; PCP Family Medicine; Visit Provider Family Medicine
DX: I65.02 Occlusion and stenosis of left vertebral artery (principal); I65.1 Occlusion and stenosis of basilar artery; Z86.73 Personal history of transient ischemic attack (TIA), and cerebral infarction without residual deficits; Z79.01 Long term (current) use of anticoagulants
CPT/HCPCS: 85610

== ENCOUNTER → 2018-03-09 16:13 | Outpatient (CLI) | payer MEDICARE, SELFPAY ==
[2018-03-09 16:29] LABS: International Normalized Ratio 1.6; Prothrombin Time (Protime)PT. 18.9 SECONDS (11.7-14.9)
== END ==
PROVIDERS: PCP Family Medicine; Visit Provider Family Medicine
DX: I65.02 Occlusion and stenosis of left vertebral artery (principal); Z86.73 Personal history of transient ischemic attack (TIA), and cerebral infarction without residual deficits; Z79.01 Long term (current) use of anticoagulants; I65.1 Occlusion and stenosis of basilar artery
CPT/HCPCS: 85610

== ENCOUNTER → 2018-06-07 11:55 | Outpatient (CLI) | payer MEDICARE, OTHER, SELFPAY ==
[2018-06-07 12:13] LABS: International Normalized Ratio 2.7; Prothrombin Time (Protime)PT. 28.6 SECONDS (11.7-14.9)
== END ==
PROVIDERS: Referring Provider Physician Assistant; Visit Provider Physician Assistant
DX: I38 Endocarditis, valve unspecified (principal); Z79.01 Long term (current) use of anticoagulants
CPT/HCPCS: 85610

== ENCOUNTER 2018-07-14 12:22 | Emergency (ER) | payer MEDICARE, OTHER, SELFPAY ==
[2018-07-14 12:23] VITALS: BP 140/82; PULSE 89; RESP 15; TEMP 37.1; O2SAT 96; BMI 29.3
--- NOTE | 2018-07-14 12:42 | CT_ITS ---
STUDY: CT BRAIN WITHOUT CONTRAST REASON FOR EXAM: Male, 78 years old. Hallucinations, on coumadin RADIATION DOSAGE (If Supplied By Facility): CTDIvol = ( 44.99 ) mGy, DLP = ( 829.85 ) mGycm TECHNIQUE: Transaxial CT imaging of the brain was performed without administration of intravenous contrast material. Individualized dose optimization techniques were used for this CT. COMPARISON: 02/01/2018. FINDINGS: There is no definite acute abnormality. There is diffuse moderate symmetric atrophy. There is atrophy of the posterior fossa structures. There is diffuse small vessel ischemic disease of the white matter. There are stable bilateral lacunar infarcts. There is no definite acute infarct. There is no bleed. There is no gross mass, mass effect, or midline shift. There is no acute abnormality of the skull. No fractures. Grossly normal orbits. Grossly normal sinuses. CT/Brain/Head without Contrast IMPRESSION: Chronic age related changes and atrophy. No acute abnormality. Electronically Signed: Ravinder Soto MD at 14:58 EDT , Service support ,
--- NOTE | 2018-07-14 12:42 | EKG12_ITS ---
Test Reason : MENTAL ILLNESS Blood Pressure : / mmHG Vent. Rate : 070 BPM Atrial Rate : 070 BPM P-R Int : 158 ms QRS Dur : 136 ms QT Int : 418 ms P-R-T Axes : 040 -63 018 degrees QTc Int : 451 ms Normal sinus rhythm with sinus arrhythmia Right bundle branch block Left anterior fascicular block Bifascicular block Abnormal ECG Confirmed by GENE WALSH, RYAN ([id number]), senior technical editor DORON RAYMOND ([id number]) on 07/19/2018 1:03:44 PM Referred By: RU Confirmed By:RYAN MILLS MD
[2018-07-14] MEDS: 0.9% Normal Saline 1,000 ML 150 ML IV (13:29)
[2018-07-14 13:30] LABS: Absolute Lymphocyte Count 0.95 X10^3/ul (0.83-4.51); Absolute Neutrophil Count 5.6 X10^3/uL (2.0-7.7); Basophil# 0.01 X10^3/uL; Basophil% 0.1 % (0-1); Eosinophil# 0.15 X10^3/uL; Hematocrit 42.1 % (40-54); Hemoglobin 13.8 g/dl (13.0-16.5); Lymphocyte # 0.95 X10^3/ul (4.0); Lymphocyte % 12.9 % (19-41); Mean Corp Hgb Conc 32.8 g/gl (32-36); Mean Corpuscular Hgb 30.6 pg (27.0-32.0); Mean Corpuscular Volume 93.3 fL (80-94); Mean Platelet Vol. 9.9 fl (6.2-12.0); Monocyte# 0.68 X10^3/uL; Monocyte% 9.2 % (0-10); Neutrophil # 5.56 X10^3/uL (2.7-7.7); Neutrophil % 75.5 % (47-70); Platelet Count 202 K/mm3 (150-450); RBC Distribution Width CV 13.8 % (11.6-14.6); RBC Distribution Width SD 47.4 fl (35.1-43.9); Red Blood Count 4.51 M/mm3 (4.6-6.2); White Blood Count 7.4 K/mm3 (4.4-11.0)
[2018-07-14 13:32] LABS: International Normalized Ratio 2.5; POSITIVE COUNT NO; POSITIVE DIFFERENTIAL NO; POSITIVE MORPHOLOGY NO; Prothrombin Time (Protime)PT. 27.1 SECONDS (11.7-14.9)
[2018-07-14 13:33] LABS: Anion Gap 4 (5-15); BUN 23 mg/dL (7-18); BUN/Creat Ratio 18.9 RATIO (10-20); Calcium,Total 8.7 mg/dL (8.5-10.1); Chloride 111 mmol/L (98-107); Creatinine, Serum 1.22 mg/dL (0.70-1.30); EST Glomerular Filtration Rate 61 mL/min (>60); Est Glom Filt Rate - Afr Amer 74 mL/min (>60); Glucose 96 mg/dL (74-106); Potassium 4.2 mmol/L (3.5-5.1); Sodium Level 142 mmol/L (136-145)
[2018-07-14 13:42] LABS: Lactic Acid 1.4 mmol/L (0.4-2.0)
[2018-07-14 14:10] LABS: Bacteria 0 SEEN /hpf (None Seen); Color, Urine Yellow (Yellow); Glucose, Dipstick Normal (Normal); Ketone-Dipstick Negative (Negative); Leukocyte Esterase-Dipstick 25 /ul (Negative); Mucous, Urine 0 SEEN /hpf (<or=2+); Nitrite-Dipstick Negative (Negative); Occult Blood-Urine 10 /ul (Negative); Protein-Dipstick Negative (Negative); Urine Bilirubin Dipstick Negative (Negative); Urine Clarity Sl. Cloudy (Clear); Urine Urobilinogen Normal (Normal)
[2018-07-14 14:20] LABS: Red Blood Cells-Urine 0-5 SEEN /hpf (0-5); Squamous Epithelial Cells - UA 0-5 SEEN /hpf (0-5); White Blood Cells 0-5 SEEN /hpf (0-5)
[2018-07-14 15:05] VITALS: RESP 18
--- NOTE | 2018-07-14 16:08 | NURSING ---
NIYA, CRISIS, AWARE. SHE WILL LET NEXT SHIFT KNOW ABOUT PATIENT
--- NOTE | 2018-07-14 16:29 | ED.VISSUMM ---
- ER Visit Summary Date of Service: 07/14/18 Chief Complaint: [Hallucinations] History of Present Illness: The patient is a 78 M [presents the emergency department with his daughter with complaint of visual hallucinations for several months. Hallucinations have been more noticeable over the last 2 weeks. Patient at times will see his daughter there when she is not actually there and talk to her. Patient apparently has been under stress it is quite anxious and at times depressed. Patient has no thoughts of wanting to harm himself or anybody else. He thought maybe his medications were to blame but he said no new changes in medication and has been on the same medications for over 6 months. Patient is on Coumadin for history of stroke. He denies any headache or falls or head injuries. He denies any recent illness. Patient has had somewhat dark urine and he has been urinating frequently but has had no fevers. Had no vomiting or diarrhea.] Physical Examination: [HEENT-PERRLA, EOMI. Cranial nerves II through XII grossly intact. TMs clear. Mucous membranes moist. No adenopathy. Cardiovascular-regular rate and rhythm without murmur or ectopy Lungs-clear to auscultation, chest wall stable without crepitus or subcu emphysema Abdomen-normoactive bowel sounds, soft, nontender, no rebound or rigidity, no peritoneal signs. Neuro rhys-uiskgl-uskz and heel reed testing within normal limits, negative Romberg, negative pronator drift Extremities-intact ?4, normal range of motion, normal pulses, atraumatic] Test Results: [CT scan of the brain without contrast showed chronic involutional changes otherwise nothing acute. EKG obtained showed a sinus rhythm with a ventricular rate of 70 bpm with right bundle branch block and left anterior fascicular block. CBC with differential count 7.4, hemoglobin 13.8, hematocrit 42, placed 202. Chemistries unremarkable. Urine was normal. Lactate was 1.4.] Emergency Department Course and Treatment: [Patient will be evaluated by electric utility lineworker for possible transfer to [facility] facility versus outpatient follow-up] care of patient turned over to evening physician awaiting evaluation by crisis and final disposition. I suspect there may be some underlying dementia. Treatment Plan: [Pending] Disposition: [Pending] Impression: [Visual hallucinations Depression] This note was generated with [employer] software. It may contain incorrect words, spelling, and punctuation that were not noted in review of the chart prior to signing ED Disposition - Plan for ED Patient: Referrals: Sebastián Garcia MD [Primary Care Provider] -
--- NOTE | 2018-07-14 16:33 | ED.DCSUM_ITS ---
- ER Visit Summary Date of Service: 07/14/18 Chief Complaint: [Hallucinations] History of Present Illness: The patient is a 78 M [presents the emergency department with his daughter with complaint of visual hallucinations for several months. Hallucinations have been more noticeable over the last 2 weeks. Patient at times will see his daughter there when she is not actually there and talk to her. Patient apparently has been under stress it is quite anxious and at times depressed. Patient has no thoughts of wanting to harm himself or anybody else. He thought maybe his medications were to blame but he said no new changes in medication and has been on the same medications for over 6 months. Patient is on Coumadin for history of stroke. He denies any headache or falls or head injuries. He denies any recent illness. Patient has had somewhat dark urine and he has been urinating frequently but has had no fevers. Had no vomiting or diarrhea.] Physical Examination: [HEENT-PERRLA, EOMI. Cranial nerves II through XII grossly intact. TMs clear. Mucous membranes moist. No adenopathy. Cardiovascular-regular rate and rhythm without murmur or ectopy Lungs-clear to auscultation, chest wall stable without crepitus or subcu emphysema Abdomen-normoactive bowel sounds, soft, nontender, no rebound or rigidity, no peritoneal signs. Neuro zwop-vtopay-wysn and heel reed testing within normal limits, negative Romberg, negative pronator drift Extremities-intact ?4, normal range of motion, normal pulses, atraumatic] Test Results: [CT scan of the brain without contrast showed chronic involutional changes otherwise nothing acute. EKG obtained showed a sinus rhythm with a ventricular rate of 70 bpm with right bundle branch block and left anterior fascicular block. CBC with differential count 7.4, hemoglobin 13.8, hematocrit 42, placed 202. Chemistries unremarkable. Urine was normal. Lactate was 1.4.] Emergency Department Course and Treatment: [Patient will be evaluated by sheep farm worker for possible transfer to [facility] versus outpatient follow-up] care of patient turned over to evening physician awaiting evaluation by crisis and final disposition. I suspect there may be some underlying dementia. Treatment Plan: [Pending] Disposition: [Pending] Impression: [Visual hallucinations Depression] This note was generated with [facility] software. It may contain incorrect words, spelling, and punctuation that were not noted in review of the chart prior to signing ED Disposition - Plan for ED Patient: Referrals: Sebastián Garcia MD [Primary Care Provider] -
--- NOTE | 2018-07-14 16:44 | NURSING ---
MILENA, CRISIS, HERE
--- NOTE | 2018-07-14 17:06 | ED.DEP ---
ED Disposition - Plan for ED Patient: Disposition: Home or Assisted Living Referrals: Naman Rodas Chi, MD [[facility]] - Counseling,Center [GROUP OF PHYSICIANS] -
--- NOTE | 2018-07-14 17:20 | CM.ED ---
SOCIAL WORK NOTE DISCUSSED CASE WITH SUPERVISOR RUBBER COVERING, MILENA. PATIENT NOT APPROPRIATE FOR DEVEN PSYCH PLACEMENT. PER MILENA, ENCOURAGED PATIENT'S FAMILY TO FOLLOW THROUGH WITH APPOINTMENT WITH DR. SHARMA. PATIENT TO BE D/C'ED HOME. LOUIS WRIGHT, SAP PROJECT MANAGER, COMMUNICATIONS EQUIPMENT SUPERVISOR.
[2018-07-14 17:22] VITALS: RESP 16
== END 2018-07-14 17:23 | disposition home or self-care (01) ==
PROVIDERS: Emergency Provider Emergency Medicine; Family Provider Family Medicine; PCP Family Medicine
DX: R44.1 Visual hallucinations (principal); F32.9 Major depressive disorder, single episode, unspecified; Z86.73 Personal history of transient ischemic attack (TIA), and cerebral infarction without residual deficits
CPT/HCPCS: 36415; 70450; 80048; 81001; 83605; 85025; 85610; 87040; 93005; 96360; 96361; 99283; J7030; A4216

== ENCOUNTER 2018-07-21 18:23 | Emergency (ER) | payer MEDICARE, OTHER, SELFPAY ==
[2018-07-21 18:24] VITALS: BP 146/73; PULSE 84; RESP 16; TEMP 36.8; O2SAT 95; BMI 28.9
--- NOTE | 2018-07-21 19:04 | ED.VISSUMM ---
- ER Visit Summary Date of Service: 07/21/18 Chief Complaint: Right hand redness History of Present Illness: The patient is a 78 M who presents with redness and swelling to his right hand that became worse today. Patient scraped his hand on a garage door yesterday. Patient has been keeping the area clean. Patient denies any paresthesias or weakness. Patient denies any discharge or drainage. Patient is unsure of his last tetanus shot. Physical Examination: Vital signs are stable. Patient is afebrile. Patient is in no acute distress. Skin is warm and dry. There is edema, erythema, mild warmth over the dorsal aspect of the right hand. There is a superficial abrasion. There is no active bleeding. There is no bony crepitance or step-off. Sensation was intact to light touch in all digits. Capillary refill was less than 2 seconds in all digits. There is good range of motion. Radial pulses are equal bilaterally. Emergency Department Course and Treatment: Patient was given a tetanus booster. Patient was given a dose of Keflex here. Bacitracin dressing was applied. Patient was given a prescription for Keflex. Patient was instructed to follow-up with his primary care physician in 5-7 days. Patient and family understood and were agreeable with the plan. All questions were answered. Disposition: Discharge home Impression: Cellulitis right hand This note was generated with [employer] dictation software. It may contain incorrect words, spelling, and punctuation that were not noted in review of the chart prior to signing ED Disposition - Plan for ED Patient: Disposition: Home or Assisted Living Diagnosis: Cellulitis of right hand Instructions: ED Infec Skin Cellulitis Prescriptions: Cephalexin [Keflex] 500 mg PO Q6 #40 cap Referrals: Sebastián Garcia MD [Primary Care Provider] - 5-7 Days
--- NOTE | 2018-07-21 19:10 | ED.DCSUM_ITS ---
- ER Visit Summary Date of Service: 07/21/18 Chief Complaint: Right hand redness History of Present Illness: The patient is a 78 M who presents with redness and swelling to his right hand that became worse today. Patient scraped his hand on a garage door yesterday. Patient has been keeping the area clean. Patient denies any paresthesias or weakness. Patient denies any discharge or drainage. Patient is unsure of his last tetanus shot. Physical Examination: Vital signs are stable. Patient is afebrile. Patient is in no acute distress. Skin is warm and dry. There is edema, erythema, mild warmth over the dorsal aspect of the right hand. There is a superficial abrasion. There is no active bleeding. There is no bony crepitance or step- off. Sensation was intact to light touch in all digits. Capillary refill was less than 2 seconds in all digits. There is good range of motion. Radial pulses are equal bilaterally. Emergency Department Course and Treatment: Patient was given a tetanus booster. Patient was given a dose of Keflex here. Bacitracin dressing was applied. Patient was given a prescription for Keflex. Patient was instructed to follow- up with his primary care physician in 5-7 days. Patient and family understood and were agreeable with the plan. All questions were answered. Disposition: Discharge home Impression: Cellulitis right hand This note was generated with [employer] dictation software. It may contain incorrect words, spelling, and punctuation that were not noted in review of the chart prior to signing ED Disposition - Plan for ED Patient: Disposition: Home or Assisted Living Diagnosis: Cellulitis of right hand Instructions: ED Infec Skin Cellulitis Prescriptions: Cephalexin [Keflex] 500 mg PO Q6 #40 cap Referrals: Sebastián Garcia MD [Primary Care Provider] - 5-7 Days
[2018-07-21] MEDS: Cephalexin 250 MG Capsule 500 MG PO (19:27)
[2018-07-21] MEDS: BACITRACIN 15 GM Tube 1 APPLIC TOPICAL (19:29)
[2018-07-21] MEDS: Diphth,Pertuss(Acell),Tet Vac 0.5 ML Vial IM (19:29)
== END 2018-07-21 20:09 | disposition home or self-care (01) ==
PROVIDERS: Emergency Provider Emergency Medicine; Family Provider Family Medicine; PCP Family Medicine
DX: L03.113 Cellulitis of right upper limb (principal); Z23 Encounter for immunization; Z86.73 Personal history of transient ischemic attack (TIA), and cerebral infarction without residual deficits; Z79.01 Long term (current) use of anticoagulants
CPT/HCPCS: 90471; 90715; 99283

== ENCOUNTER → 2018-07-28 10:24 | Outpatient (CLI) | payer MEDICARE, OTHER, SELFPAY ==
[2018-07-21 18:24] VITALS: BMI 28.9
[2018-07-28 10:37] LABS: International Normalized Ratio 2.6; Prothrombin Time (Protime)PT. 27.6 SECONDS (11.7-14.9)
== END ==
PROVIDERS: Family Provider Family Medicine; PCP Family Medicine; Referring Provider Family Medicine; Visit Provider Family Medicine
DX: I65.02 Occlusion and stenosis of left vertebral artery (principal); Z79.01 Long term (current) use of anticoagulants; Z86.73 Personal history of transient ischemic attack (TIA), and cerebral infarction without residual deficits
CPT/HCPCS: 85610

== ENCOUNTER → 2018-08-25 | Outpatient (CLI) | payer MEDICARE, OTHER, SELFPAY ==
[2018-08-25 11:25] LABS: International Normalized Ratio 1.1; Prothrombin Time (Protime)PT. 13.9 SECONDS (11.7-14.9)
== END | disposition home or self-care (01) ==
LOC: LABSPEC 10:57
PROVIDERS: Family Provider Family Medicine; PCP Family Medicine; Referring Provider Family Medicine; Visit Provider Family Medicine
DX: I65.1 Occlusion and stenosis of basilar artery (principal); I65.02 Occlusion and stenosis of left vertebral artery; Z79.01 Long term (current) use of anticoagulants; Z86.73 Personal history of transient ischemic attack (TIA), and cerebral infarction without residual deficits
CPT/HCPCS: 85610

== ENCOUNTER 2019-01-28 12:41 | Emergency (ER) | payer MEDICARE, OTHER, SELFPAY ==
[2019-01-28 12:41] VITALS: BP 149/82; PULSE 62; RESP 16; TEMP 36.8; O2SAT 97; BMI 27.3
--- NOTE | 2019-01-28 13:01 | VDLE_ITS ---
Reason For Study: Pain RIGHT GSV is normal. CFV is compressible, spontaneous, phasic, competent and demonstrates normal augmentation. FV is compressible, spontaneous, phasic, competent and demonstrates normal augmentation. POP V is compressible, spontaneous, phasic, competent and demonstrates normal augmentation. T/P Trunk is compressible. PTV is compressible. RT PerV is compressible. Procedure Exam performed portable in ED. A preliminary report was called and/or faxed to [facility]. Interpretation Summary Deep veins of the right lower extremity are patent and compressible segmentally. There is no evidence of right lower extremity deep vein thrombosis. Valvular competence appears intact within the proximal deep venous system on the right . The right great saphenous vein appears patent and compressible segmentally. Ordering Physician: Nimesh Fish Referring Physician: Sebastián Garcia Performed By: Loyda Mcgregor RVT
--- NOTE | 2019-01-28 13:11 | ED.VISSUMM ---
- ER Visit Summary Date of Service: 01/28/19 Chief Complaint: Right leg pain History of Present Illness: The patient is a 78 M who presents with right leg pain that has been constant for the past week. Patient states the pain starts in his right buttock and radiates down his right leg. Patient describes the pain as dull. Patient states the pain is worse with walking. Patient denies any paresthesias or weakness. Patient saw his primary care physician today who referred him to the emergency department for possible DVT of the right leg because he had calf tenderness in his office. Physical Examination: Vital signs are stable. Patient is afebrile. Patient is in no acute distress. Oral mucosa is pink and moist. Neck is supple. Trachea is midline. There is no JVD noted. Heart was regular rate and rhythm. Lungs are clear and equal bilaterally. Abdomen is soft. Bowel sounds are normal. There is no tenderness. Musculoskeletal exam reveals some mild tenderness of the right sciatic notch and right gluteal area. Patient does admit to some radicular pain with deep palpation of this area. Strength is 5/5 bilateral knee upper and lower extremities. There are no sensory deficits noted. Patient denies any calf tenderness on my examination. There is no pain with dorsiflexion of the ankles bilaterally. Pedal pulses are equal bilateral. There is 1+ edema bilaterally in the lower extremities. Test Results: CBC, basic metabolic profile, PT with INR, and PTT were obtained and were all normal. Venous duplex of the right lower extremity was obtained and does not show any evidence of DVT. Emergency Department Course and Treatment: Patient was advised that this is most likely sciatica pain since that starts in his right buttock and radiates to his right lower extremity. Patient was instructed to follow-up with his primary care physician in 5 to 7 days. Patient was instructed to take Tylenol or ibuprofen as needed for pain. Patient and family understood and were agreeable with the plan. All questions were answered. Disposition: Discharge home Impression: Sciatica This note was generated with [employer] dictation software. It may contain incorrect words, spelling, and punctuation that were not noted in review of the chart prior to signing ED Disposition - Plan for ED Patient: Disposition: Home or Assisted Living Diagnosis: Sciatica of right side Instructions: BACK PAIN w/ SCIATICA Referrals: Sebastián Garcia MD [Primary Care Provider] - 5-7 Days
[2019-01-28 13:49] LABS: Absolute Lymphocyte Count 1.03 X10^3/uL (0.83-4.51); Absolute Neutrophil Count 5.9 X10^3/uL (2.0-7.7); Basophil# 0.01 X10^3/uL; Basophil% 0.1 % (0-1); Eosinophil# 0.14 X10^3/uL; Eosinophils% 1.8 % (0-5); Hematocrit 42.2 % (40-54); Lymphocyte # 1.03 X10^3/ul (4.0); Lymphocyte % 13.2 % (19-41); Mean Corp Hgb Conc 33.2 g/dL (32-36); Mean Corpuscular Hgb 31.6 pg (27.0-32.0); Mean Corpuscular Volume 95.3 fL (80-94); Mean Platelet Vol. 9.2 fl (6.2-12.0); Monocyte# 0.69 X10^3/uL; Monocyte% 8.8 % (0-10); NRBC Flagged by Analyzer 0 % (0-5); Neutrophil # 5.92 X10^3/uL (2.7-7.7); Neutrophil % 75.7 % (47-70); Platelet Count 198 K/mm3 (150-450); RBC Distribution Width SD 45.5 fl (35.1-43.9); Red Blood Count 4.43 M/mm3 (4.6-6.2); White Blood Count 7.8 K/mm3 (4.4-11.0)
[2019-01-28 13:54] LABS: International Normalized Ratio 1.2; Prothrombin Time (Protime)PT. 14.9 SECONDS (11.7-14.9)
[2019-01-28 13:55] LABS: Partial Thromboplast Time 26.9 Seconds (24.1-36.2)
[2019-01-28 14:00] LABS: Anion Gap 4 (5-15); BUN 22 mg/dL (7-18); BUN/Creat Ratio 17.9 RATIO (10-20); Calcium,Total 8.8 mg/dL (8.5-10.1); Chloride 109 mmol/L (98-107); Creatinine, Serum 1.23 mg/dL (0.70-1.30); EST Glomerular Filtration Rate 60 mL/min (>60); Est Glom Filt Rate - Afr Amer 73 mL/min (>60); Estimated Creatinine Clearance 45.53 ml/min; Glucose 119 mg/dL (74-106); Potassium 4.1 mmol/L (3.5-5.1); Sodium Level 141 mmol/L (136-145)
[2019-01-28 14:48] VITALS: PULSE 66; RESP 17; O2SAT 98
== END 2019-01-28 14:49 | disposition home or self-care (01) ==
PROVIDERS: Emergency Provider Emergency Medicine; Family Provider Family Medicine; PCP Family Medicine
DX: M54.31 Sciatica, right side (principal); F03.90 Unspecified dementia, unspecified severity, without behavioral disturbance, psychotic disturbance, mood disturbance, and anxiety; Z86.73 Personal history of transient ischemic attack (TIA), and cerebral infarction without residual deficits
CPT/HCPCS: 80048; 85025; 85610; 85730; 93971; 99283; A4216

== ENCOUNTER → 2019-10-14 | Outpatient (CLI) | payer MEDICARE, OTHER, SELFPAY ==
[2019-10-14 15:10] LABS: Prothrombin Time (Protime)PT. 13.1 SECONDS (11.7-14.9)
[2019-10-14 15:14] LABS: Anion Gap 7 (5-15); BUN 18 mg/dL (7-18); BUN/Creat Ratio 17.3 RATIO (10-20); Calcium,Total 8.9 mg/dL (8.5-10.1); Chloride 111 mmol/L (98-107); Cholesterol 129 mg/dL (200); Creatinine, Serum 1.04 mg/dL (0.70-1.30); EST Glomerular Filtration Rate 73 mL/min (>60); Est Glom Filt Rate - Afr Amer 88 mL/min (>60); Glucose 92 mg/dL (74-106); High Density Lipoprotein 54 mg/dL; Sodium Level 142 mmol/L (136-145); Triglycerides 54 mg/dL; Very Low Density Lipoprotein 11 mg/dL (5-40)
== END | disposition home or self-care (01) ==
PROVIDERS: PCP Family Medicine; Referring Provider Family Medicine; Visit Provider Family Medicine
DX: I48.91 Unspecified atrial fibrillation (principal); I10 Essential (primary) hypertension; Z86.73 Personal history of transient ischemic attack (TIA), and cerebral infarction without residual deficits
CPT/HCPCS: 36415; 80048; 80061; 85610

== ENCOUNTER → 2019-10-26 | Outpatient (CLI) | payer MEDICARE, OTHER, SELFPAY | END | disposition home or self-care (01) | LOC: MTDU 11-01 11:20 | PROVIDERS: PCP Family Medicine; Referring Provider Family Medicine; Visit Provider Family Medicine | DX: Z01.89 Encounter for other specified special examinations (principal) | CPT/HCPCS: 87635; G2023; U0003 ==

== ENCOUNTER 2021-06-19 15:18 | Emergency (ER) | payer MEDICARE, SELFPAY ==
[2021-06-19 15:19] VITALS: BP 150/86; PULSE 83; RESP 17; TEMP 36.4; O2SAT 97; BMI 27.6
--- NOTE | 2021-06-19 15:30 | EKG12_ITS ---
Test Reason : AFIB Blood Pressure : / mmHG Vent. Rate : 105 BPM Atrial Rate : 108 BPM P-R Int : 128 ms QRS Dur : 130 ms QT Int : 364 ms P-R-T Axes : 048 -68 015 degrees QTc Int : 481 ms Sinus tachycardia Left axis deviation Right bundle branch block Abnormal ECG Confirmed by MISSY WALSH, SANDRA ([id number]), makeup editor DORON RAYMOND ([id number]) on 06/21/2021 1:55:47 PM Referred By: DC Confirmed By:SANDRA LOUIS MD
--- NOTE | 2021-06-19 15:50 | CT_ITS ---
STUDY: CT BRAIN WITHOUT CONTRAST REASON FOR EXAM: Male, 81 years old. Altered mental status with history of TIA, vertigo, hypertension RADIATION DOSAGE (If Supplied By Facility): CTDIvol = ( 44.99 ) mGy, DLP = ( 796.11 ) mGycm TECHNIQUE: Transaxial CT imaging of the brain was performed without administration of intravenous contrast material. Individualized dose optimization techniques were used for this CT. COMPARISON: 07/14/2018 FINDINGS: Normal soft tissue structures. Normal calvarium. There is mild cerebral atrophy with widening of the extra-axial spaces and ventricular dilatation. There are areas of decreased attenuation within the white matter tracts of the supratentorial brain, consistent with microvascular disease changes. Normal basal ganglia and thalami. Normal brainstem. Normal cerebellum. There is no intracranial hemorrhage. There are no findings of an acute ischemic infarction. Normal visualized paranasal sinuses. CT/Brain/Head without Contrast IMPRESSION: No acute intracranial hemorrhage or mass effect. Electronically Signed: Adelso Medellin MD (Brooks) at 16:43 EST Reading Location ID and State: [place] , Service support ,
[2021-06-19 16:03] LABS: Absolute Lymphocyte Count 0.52 X10^3/uL (0.83-4.51); Absolute Neutrophil Count 6.9 X10^3/uL (2.0-7.7); Eosinophil# 0.03 X10^3/uL; Eosinophils% 0.4 % (0-5); Hematocrit 45.2 % (40-54); Hemoglobin 15.3 g/dL (13.0-16.5); Lymphocyte # 0.52 X10^3/ul (0.83-4.51); Lymphocyte % 6.5 % (19-41); Mean Corp Hgb Conc 33.8 g/dL (32-36); Mean Corpuscular Hgb 32.1 pg (27.0-32.0); Mean Platelet Vol. 10.3 fl (6.2-12.0); Monocyte# 0.62 X10^3/uL; Monocyte% 7.7 % (0-10); NRBC Flagged by Analyzer 0 % (0-5); Neutrophil # 6.85 X10^3/uL (2.7-7.7); Neutrophil % 84.9 % (47-70); POSITIVE DIFFERENTIAL YES; Platelet Count 209 K/mm3 (150-450); RBC Distribution Width CV 13.3 % (11.6-14.6); RBC Distribution Width SD 46.8 fl (35.1-43.9); Red Blood Count 4.76 M/mm3 (4.6-6.2); White Blood Count 8.1 K/mm3 (4.4-11.0)
[2021-06-19 16:05] LABS: Differential Indicated SCAN CRITERIA MET
--- NOTE | 2021-06-19 16:12 | RAD_ITS ---
STUDY: X-RAY CHEST REASON FOR EXAM: Male, 81 years old. Altered mental status with history of TIA, vertigo, hypertension TECHNIQUE: AP COMPARISON: None. FINDINGS: EKG leads project over the chest. The lungs are clear and expanded. There is no demonstrated pleural abnormality. Normal size heart. Normal mediastinum and marvin. Normal visualized pulmonary arteries. There is atherosclerotic calcification of the aortic arch with tortuosity. There are diffuse degenerative changes of the visualized thoracic spine. There is degenerative osteoarthritis of the bilateral shoulders. There is no demonstrated abnormality of the visualized soft tissue structures of the upper abdomen. RAD/Chest 1 View (Portable) IMPRESSION: No airspace consolidation or pleural effusion. Electronically Signed: Adelso Medellin MD (Brooks) at 16:50 EST ,
[2021-06-19 16:24] LABS: ALB/GLOB Ratio 0.9 RATIO (0.9-2.4); AST(SGOT) 15 U/L (15-37); Alanine Aminotransfer ALT/SGPT 21 U/L (16-61); Albumin, Serum 3.5 g/dL (3.2-5.0); Alkaline Phosphatase 93 U/L (45-117); Anion Gap 6 (5-15); BUN 29 mg/dL (7-18); BUN/Creat Ratio 20.6 RATIO (10-20); Chloride 109 mmol/L (98-107); Creatinine, Serum 1.41 mg/dL (0.70-1.30); EST Glomerular Filtration Rate 51 mL/min (>60); Est Glom Filt Rate - Afr Amer 62 mL/min (>60); Estimated Creatinine Clearance 39.08 ml/min; Globulin 4.1 g/dL (2.2-4.2); Glucose 86 mg/dL (74-106); Potassium 3.8 mmol/L (3.5-5.1); Protein, Total 7.6 g/dL (6.4-8.2); Sodium Level 140 mmol/L (136-145); Troponin-I HS 10 pg/mL (3.0-78.0)
[2021-06-19 16:55] LABS: Bacteria 0 SEEN /hpf (None Seen); Mucous, Urine 0 SEEN /hpf (<or=2+); Squamous Epithelial Cells - UA 0 SEEN /hpf (0-5)
[2021-06-19 16:55] LABS: Differential Comment SCANNED
[2021-06-19 17:05] LABS: Color, Urine Yellow (Yellow); Glucose, Dipstick Normal (Normal); Ketone-Dipstick Negative (Negative); Leukocyte Esterase-Dipstick 25 /ul (Negative); Nitrite-Dipstick Negative (Negative); Occult Blood-Urine 25 /ul (Negative); Protein-Dipstick 15 mg/dl (Negative); Urine Bilirubin Dipstick Negative (Negative); Urine Clarity Clear (Clear); Urine Urobilinogen Normal (Normal)
[2021-06-19 17:18] VITALS: BP 114/100; PULSE 85; RESP 16; O2SAT 97
[2021-06-19 17:46] LABS: Red Blood Cells-Urine 0-5 SEEN /hpf (0-5); White Blood Cells 0-5 SEEN /hpf (0-5)
--- NOTE | 2021-06-19 18:07 | EDS_ITS ---
HPI History of Present Illness Chief Complaint: Alt LOC Informant: patient and family Onset/Context/Timing Onset: Days Context: Gradual Onset Timing: Continuous Current Severity: Mild Worsened by: nothing Relieved by: nothing Associated Symptoms Associated Symptoms: none Narrative Narrative: Patient [facility]. He has a history of dementia, hypertension, BPH, constipation, hyperlipidemia, prostate cancer. Presents with his family today for altered mental status. Seems to be confused and drooling at times. No focal weakness or numbness. No facial droop. No vision changes. No speech changes. Symptoms have been going on for days. Nothing seemed to bring them on or make them worse. Nothing seems to make them better. [facility] Medical History (Updated 06/19/21 @ 18:[address] Eladia Chau MD) Benign prostatic hyperplasia Constipation Dementia Former tobacco use Hyperlipidemia Hypertension Malignant neoplasm of prostate Home Medications amlodipine [Norvasc] 10 mg PO DAILY 02/01/18 [History Last Taken Unknown] atorvastatin 10 mg PO DAILY 02/01/18 [History Last Taken Unknown] tamsulosin [Flomax] 0.4 mg PO QHS 02/01/18 [History Last Taken Unknown] polyethylene glycol 3350 17 gm PO DAILY PRN 01/28/19 [History Last Taken Unknown] acetaminophen 650 mg PO Q4H PRN 06/19/21 [History Last Taken Unknown] buspirone 5 mg PO BID 06/19/21 [History Last Taken Unknown] donepezil [Aricept] 10 mg PO DAILY 06/19/21 [History Last Taken Unknown] ketoconazole 1 applic TOPICAL Q3D 06/19/21 [History Last Taken Unknown] memantine 5 mg PO BID 06/19/21 [History Last Taken Unknown] sennosides [senna] 17.2 mg PO DAILY 06/19/21 [History Last Taken Unknown] Allergy/AdvReac Type Severity Reaction Status Date / Time No Known Allergies Allergy Verified 06/19/21 15:31 Family History (Updated 06/19/21 @ 18:[address] Eladia Chau MD) Mother Cancer Hx Breast CA. Father MVA (motor vehicle accident) at a young age following severe complications with MVA. Surgical History (Updated 06/19/21 @ 18:[address] Eladia Chau MD) S/P appendectomy Social History (Updated 06/19/21 @ 18:[address] Eladia Chau MD) housing: assisted living facility Smoking Status: Former smoker how long ago did patient quit smoking: Quit 20-30 years prior. alcohol intake: never substance use type: does not use ROS ROS ED Review of Systems ROS Unobtainable: Denies due to encephalopathy Constitutional Constitutional ED: Denies chills or fever(s) Eyes Eyes: Denies change in vision or diplopia ENT ENT ED: Denies ear pain, rhinorrhea or sore throat Cardiovascular Cardiovascular: Denies chest pain Respiratory/Chest Respiratory/Chest: Denies cough or dyspnea Gastrointestinal Gastrointestinal: Denies abdominal pain, diarrhea, nausea or vomiting Genitourinary Genitourinary ED: Denies dysuria or hematuria Musculoskeletal Musculoskeletal: Denies arthralgias or myalgias Integumentary Denies rash Neurologic Neurologic: Denies headache(s), paresthesias or weakness Psychiatric Psychiatric: Denies depression Endocrine Endocrinology: Denies polyuria Allergic/Immunologic Allergic/Immunologic ED: Denies urticaria EXAM Physical Exam Const Vital Signs: 06/19/21 15:19 06/19/21 17:18 06/19/21 19:00 Temperature 97.6 F L Temperature Source Temporal Pulse Rate 83 85 116 H Respiratory Rate 17 16 19 H Blood Pressure 150/86 H 114/100 H 104/68 Blood Pressure Mean 107 104 80 Pulse Ox 97 97 97 Oxygen Delivery Method Room Air Room Air Room Air Positive well nourished and well developed General Appearance ED: well developed HEENT Negative for trauma or tenderness Eyes PERRL and EOMs intact bilaterally Neck no lymphadenopathy and supple Resp normal respiratory effort and clear to auscultation bilaterally Cardio regular rate and regular rhythm GI normal to inspection, nondistended, normoactive bowel sounds and non-tender Palpation: soft Neuro CN's II-XII intact bilaterally and no sensory deficits noted Neuro Narrative: Oriented to person and place Sensorium / Orientation: alert Sensory Exam: sensory level loss detected Motor Exam: strength 5/5 throughout Psych mental status grossly normal Skin no rashes or lesions noted MDM MDM MDM Narrative Medical decision making narrative: Patient has no complaints. Family report that he is confused at times and drooling at times. Does not sound like a stroke. He had an EKG which was interpreted by me that appears to be a second- degree heart block. CT brain was unremarkable. Labs and urine were unremarkable. Patient is feeling better, not confused and would like discharge. EKG was reviewed with cardiology here. It is unclear if this is atrial fibrillation or a secondary heart block. We do not have EP or pacemaker placement capabilities at this facility. Family initially requested [facility] but they were not accepting any patients at this evening. The [facility] did accept the patient, Dr. Muñoz. Transfer to [facility] Impression #1 altered mental status Impression #2 secondary heart block type II Lab Data Labs: Laboratory Results - last 24 hr 06/19/21 06/19/21 06/19/21 15:24 15:24 16:52 WBC 8.1 RBC 4.76 Hgb 15.3 Hct 45.2 MCV 95.0 H MCH 32.1 H MCHC 33.8 RDW Std Deviation 46.8 H RDW Coeff of Damaris 13.3 Plt Count 209 MPV 10.3 Immature Gran % (Auto) 0.500 Neut % (Auto) 84.9 H Lymph % (Auto) 6.5 L Dundy % (Auto) 7.7 Eos % (Auto) 0.4 Baso % (Auto) 0.0 Absolute Neuts (auto) 6.9 Absolute Lymphs (auto) 0.52 L Nucleated RBC % 0 Differential Comment SCANNED Sodium 140 Potassium 3.8 Chloride 109 H Carbon Dioxide 25.0 Anion Gap 6 BUN 29 H Creatinine 1.41 H Estim Creat Clear Calc 39.08 Est GFR (MDRD) Af Amer 62 Est GFR (MDRD) Non-Af 51 L BUN/Creatinine Ratio 20.6 H Glucose 86 Calcium 9.0 Total Bilirubin 0.70 AST 15 ALT 21 Alkaline Phosphatase 93 Troponin I High Sens 10 Total Protein 7.6 Albumin 3.5 Globulin 4.1 Albumin/Globulin Ratio 0.9 Urine Color Yellow Urine Clarity Clear Urine pH 5.0 Ur Specific [place] 1.020 Urine Protein 15 H Urine Glucose (UA) Normal Urine Ketones Negative Urine Occult Blood 25 H Urine Nitrite Negative Urine Bilirubin Negative Urine Urobilinogen Normal Ur Leukocyte Esterase 25 H Urine RBC 0-5 SEEN Urine WBC 0-5 SEEN Ur Squamous Epith Cells 0 SEEN Urine Bacteria 0 SEEN Urine Mucus 0 SEEN Radiography Diagnostic Testing: Clinical Impression(s) from Imaging Studies Brain CT 06/19/21 15:50 IMPRESSION: No acute intracranial hemorrhage or mass effect. Electronically Signed: Adelso Medellin MD (Brooks) at 16:43 EST , Chest X-Ray 06/19/21 16:12 IMPRESSION: No airspace consolidation or pleural effusion. Electronically Signed: Adelso Medellin MD (Brooks) at 16:50 EST , Discharge Plan Triage Chief Complaint: Alt LOC ED Provider: Shahzad Brink Dx/Rx/DC Orders Prescriptions: No Action atorvastatin 10 MG tablet 10 mg PO DAILY RF: 0 amlodipine [Norvasc] 2.5 MG tablet 10 mg PO DAILY RF: 0 tamsulosin [Flomax] 0.4 MG capsule 0.4 mg PO QHS RF: 0 polyethylene glycol 3350 238 GM powder 17 gm PO DAILY PRN (Reason: Constipation) RF: 0 buspirone 5 mg Tablet 5 mg PO BID RF: 0 sennosides [senna] 8.6 mg Tablet 17.2 mg PO DAILY RF: 0 donepezil [Aricept] 10 mg Tablet 10 mg PO DAILY RF: 0 ketoconazole 1 % Shampoo 1 applic TOPICAL Q3D RF: 0 memantine 5 mg Tablet 5 mg PO BID RF: 0 acetaminophen 325 mg Capsule 650 mg PO Q4H PRN (Reason: pain/fever) RF: 0
--- NOTE | 2021-06-19 18:39 | ED.RN ---
I was approached by daughter at nursing station with questions. daughter was asked to return to room so conversation would take place in a private area. daughter expressed concerns about ed dr initially informing them that nothing was wrong and patient would be returning to [facility]. after dr revaluated patient's chart he returned to the room and said patient required admission. family member was concerned about the change in care. daughter became agitated and loud demanding an explanation. pt then became agitated related to daughters behavior. concerns brought to rn relief charge attention. de-escalations attempted. dr aware. ramirez, rn [id number]
[2021-06-19 19:00] VITALS: BP 104/68; PULSE 116; RESP 19; O2SAT 97
[2021-06-19 20:18] VITALS: BP 144/84; PULSE 99; RESP 21; O2SAT 97
== END 2021-06-19 21:03 | disposition short-term general hospital (02) ==
PROVIDERS: Emergency Provider Emergency Medicine; Visit Provider Emergency Medicine
DX: R41.82 Altered mental status, unspecified (principal); I44.1 Atrioventricular block, second degree; E78.5 Hyperlipidemia, unspecified; I10 Essential (primary) hypertension; N40.0 Benign prostatic hyperplasia without lower urinary tract symptoms; Z87.891 Personal history of nicotine dependence; Z79.899 Other long term (current) drug therapy
CPT/HCPCS: 70450; 71045; 80053; 81001; 84484; 85025; 87426; 93005; 99285

== ENCOUNTER → 2021-12-06 | Outpatient (CLI) | payer MEDICARE, SELFPAY ==
[2021-12-06 18:01] LABS: Anion Gap 6 (5-15); BUN 23 mg/dL (7-18); BUN/Creat Ratio 18.1 RATIO (10-20); Calcium,Total 8.8 mg/dL (8.5-10.1); Chloride 111 mmol/L (98-107); Cholesterol 105 mg/dL (200); Creatinine, Serum 1.27 mg/dL (0.70-1.30); EST Glomerular Filtration Rate 58 mL/min (>60); Est Glom Filt Rate - Afr Amer 70 mL/min (>60); Glucose 123 mg/dL (74-106); High Density Lipoprotein 47 mg/dL; PSA,Total - Annual Screen 0.95 ng/mL (0.00-4.00); Potassium 3.8 mmol/L (3.5-5.1); Sodium Level 141 mmol/L (136-145); Triglycerides 54 mg/dL; Very Low Density Lipoprotein 11 mg/dL (5-40)
== END | disposition home or self-care (01) ==
LOC: MFPLAB 15:25
PROVIDERS: PCP Family Medicine; Referring Provider Family Medicine; Visit Provider Family Medicine
DX: Z00.00 Encounter for general adult medical examination without abnormal findings (principal); E78.5 Hyperlipidemia, unspecified; Z12.5 Encounter for screening for malignant neoplasm of prostate
CPT/HCPCS: 36415; 80048; 80061; 84153; G0103

== ENCOUNTER 2021-12-26 08:37 | Emergency (ER) | payer MEDICARE, SELFPAY ==
[2021-12-26 08:37] VITALS: BP 118/78; PULSE 87; RESP 16; TEMP 37.1; O2SAT 97; BMI 27.0
--- NOTE | 2021-12-26 08:47 | CT_ITS ---
STUDY: CT BRAIN WITHOUT CONTRAST REASON FOR EXAM: Male, 81 years old. Fall, confusion. History of dementia. RADIATION DOSAGE (If Supplied By Facility): CTDIvol = ( 44.99 ) mGy, DLP = ( 863.60 ) mGycm TECHNIQUE: Transaxial CT imaging of the brain was performed without administration of intravenous contrast material. Individualized dose optimization techniques were used for this CT. COMPARISON: Comparison is made with prior study dated 06/19/2021. FINDINGS: Normal soft tissue structures. Normal calvarium. There is mild cerebral atrophy with widening of the extra-axial spaces and ventricular dilatation. There are areas of decreased attenuation within the white matter tracts of the supratentorial brain, consistent with microvascular disease changes. Normal basal ganglia and thalami. Normal brainstem. Normal cerebellum. There is no intracranial hemorrhage. There are no findings of an acute ischemic infarction. Atherosclerotic plaque formation of the cavernous portions of the internal carotid arteries bilaterally. Normal visualized paranasal sinuses. CT/Brain/Head without Contrast IMPRESSION: Chronic involutional changes of the brain. Electronically Signed: Scooby Parker MD at 10:23 EDT ,
--- NOTE | 2021-12-26 08:48 | EKG12_ITS ---
Test Reason : fall Blood Pressure : / mmHG Vent. Rate : 092 BPM Atrial Rate : 092 BPM P-R Int : 160 ms QRS Dur : 124 ms QT Int : 388 ms P-R-T Axes : 016 -68 011 degrees QTc Int : 479 ms Sinus rhythm with marked sinus arrhythmia Right bundle branch block Left anterior fascicular block Bifascicular block Abnormal ECG Confirmed by HARIS WALSH, SERENA ([id number]), technical writer and editor DORON RAYMOND ([id number]) on 12/27/2021 2:10:39 PM Referred By: Zeinab Confirmed By:DANNA CARBALLO MD
--- NOTE | 2021-12-26 08:49 | EX.ED.DYSGE1 ---
HPI History of Present Illness Chief Complaint: Fall Detail of Chief Complaint: Fall that occurred today Informant: patient, family and EMS Narrative Narrative: Patient presents to the emergency department via EMS from assisted living facility. Patient was found on the floor this morning and it is unclear how long he was on the floor. Patient is a poor historian and has history of dementia. He denied any complaints. Patient denies headache, chest pain, neck pain, abdominal pain, or other injury. Per family member patient did complain of frequent urination yesterday as well as pain in his back and legs. Patient has had a cough for the last 3 to 4 days. No fevers known. Patient not on blood thinners. [facility] Medical History (Updated 12/26/21 @ 10:[address] Karmen Olivia, ) Benign prostatic hyperplasia Constipation Dementia Former tobacco use Hyperlipidemia Hypertension Malignant neoplasm of prostate Home Medications amlodipine 2.5 mg tablet (Norvasc) 10 mg PO DAILY 02/01/18 [History Last Taken Unknown] atorvastatin 10 mg tablet 10 mg PO DAILY 02/01/18 [History Last Taken Unknown] tamsulosin 0.4 mg capsule (Flomax) 0.4 mg PO QHS 02/01/18 [History Last Taken Unknown] polyethylene glycol 3350 17 gram/dose oral powder 17 gm PO DAILY PRN Constipation 01/28/19 [History Last Taken Unknown] acetaminophen 325 mg capsule 650 mg PO Q4H PRN pain/fever 06/19/21 [History Last Taken Unknown] buspirone 5 mg tablet 5 mg PO BID 06/19/21 [History Last Taken Unknown] donepezil 10 mg tablet (Aricept) 10 mg PO DAILY 06/19/21 [History Last Taken Unknown] ketoconazole 1 % shampoo 1 applic topical Q3D 06/19/21 [History Last Taken Unknown] memantine 5 mg tablet 5 mg PO BID 06/19/21 [History Last Taken Unknown] sennosides 8.6 mg tablet (senna) 17.2 mg PO DAILY 06/19/21 [History Last Taken Unknown] nirmatrelvir 300 mg (150 mg x2)-ritonavir 100 mg tablet,dose pack(EUA) (Paxlovid) See Rx Instructions PO .COMPLEX #30 tabs 12/26/21 [Rx Last Taken Unknown] Allergy/AdvReac Type Severity Reaction Status Date / Time No Known Allergies Allergy Verified 12/26/21 08:37 Family History (Updated 06/19/21 @ 18:[address] Eladia Chau MD) Mother Cancer Hx Breast CA. Father MVA (motor vehicle accident) at a young age following severe complications with MVA. Surgical History S/P appendectomy Social History (Updated 06/19/21 @ 18:[address] Eladia Chau MD) housing: assisted living facility Smoking Status: Former smoker how long ago did patient quit smoking: Quit 20-30 years prior. alcohol intake: never substance use type: does not use ROS ROS ED Review of Systems ROS Unobtainable: other Constitutional Constitutional ED: Reports lethargy; Denies chills, fever(s), sweats or weight loss Eyes Eyes: Denies blurry vision, change in vision or diplopia ENT ENT ED: Denies rhinorrhea or sore throat Cardiovascular Cardiovascular: Denies chest pain, orthopnea or racing heartbeat Respiratory/Chest Respiratory/Chest: Denies cough, dyspnea, dyspnea on exertion, orthopnea or sputum Gastrointestinal Gastrointestinal: Denies abdominal pain, diarrhea, nausea or vomiting Genitourinary Genitourinary ED: Denies dysuria, hematuria or urinary frequency Musculoskeletal Musculoskeletal: Denies arthralgias, back pain, myalgias or neck pain Integumentary Denies abscess, Abrasions or rash Neurologic Neurologic: Denies headache(s) or weakness Psychiatric Psychiatric: Denies anxiety, depression or suicidal thoughts Endocrine Endocrinology: Denies polydipsia, polyphagia or polyuria Hematologic/Lymphatic Hematologic/Lymphatic: Denies easy bleeding, easy bruising or lymphadenopathy Allergic/Immunologic Allergic/Immunologic ED: Denies mouth swelling, tongue swelling or urticaria EXAM Physical Exam Const Vital Signs: 12/26/21 08:37 12/26/21 08:47 Temperature 98.7 F Temperature Source Temporal Pulse Rate 87 Respiratory Rate 16 Respiratory Effort Normal Respiratory Depth Normal Respiratory Pattern Normal Blood Pressure 118/78 Blood Pressure Mean 91 Pulse Ox 97 Oxygen Delivery Method Room Air Positive well nourished and well developed General Appearance ED: well developed and NAD HEENT Reports TM's clear and moist mucous membranes normocephalic and atraumatic; Negative for trauma or tenderness Tympanic Membrane ED: Yes TM's clear Eyes PERRL and EOMs intact bilaterally General Eye ED: Negative for pale conjunctiva or scleral icterus Neck no lymphadenopathy, supple and no JVD General: Negative for tenderness Chest Wall inspection of chest normal and palpation of chest normal Chest: Negative for tenderness Resp normal respiratory effort and clear to auscultation bilaterally Effort and Inspection: Negative for respiratory distress or pain with movement Auscultation: Negative for rhonchi, wheezes or diminished lung sounds Cardio regular rate, regular rhythm, S1 normal heart sound, S2 normal heart sound and no murmurs Peripheral Pulses: pulses 2+ throughout GI normal to inspection, nondistended, normoactive bowel sounds, soft to palpation, non-tender, non-distended and no masses Back/Spine no CVA tenderness and no thoracic nor lumbar tenderness Extremity Extremity Narrative: Patient has superficial abrasion to the left elbow with some ecchymosis and bruising noted that appears to be old. No bony tenderness on exam and good range of motion. Neurovascularly intact. General Extremety ED: Negative for edema General Extremity: Negative for edema Neuro oriented x3, CN's II-XII intact bilaterally, no sensory deficits noted and gait normal Sensorium / Orientation: awake, alert and oriented to person; Negative for oriented to place or oriented to time Motor Exam: strength 5/5 throughout and strength abnormal Psych mental status grossly normal Skin no rashes or lesions noted and no wounds MDM MDM MDM Narrative Medical decision making narrative: CT scan of the brain was unremarkable. Urinalysis was positive for 25-50 RBCs and +1 bacteria. Urine culture was sent. Patient was given a gram of Rocephin IV. Patient was noted to be positive for COVID-19. Patient will be discharged back to detention with recommendation of proper follow-up with primary care physician 5 to 7 days. I will start patient on Paxlovid. Patient has had the COVID-vaccine and is immunized. Lab Data Attestation: I reviewed the patient's lab results. Labs: Laboratory Results - last 24 hr 12/26/21 12/26/21 12/26/21 09:10 09:20 09:20 WBC 8.7 RBC 4.61 Hgb 14.4 Hct 43.7 MCV 94.8 H MCH 31.2 MCHC 33.0 RDW Std Deviation 45.4 H RDW Coeff of [place]aris 13.1 Plt Count 158 MPV 9.6 Immature Gran % (Auto) 0.300 Neut % (Auto) 82.2 H Lymph % (Auto) 5.9 L [place] % (Auto) 11.5 H Eos % (Auto) 0.0 Baso % (Auto) 0.1 Absolute Neuts (auto) 7.1 Absolute Lymphs (auto) 0.51 L Nucleated RBC % 0 Sodium 141 Potassium 3.8 Chloride 108 H Carbon Dioxide 24.0 Anion Gap 9 BUN 27 H Creatinine 1.33 H Estim Creat Clear Calc 41.43 Est GFR (MDRD) Af Amer 66 Est GFR (MDRD) Non-Af 55 L BUN/Creatinine Ratio 20.3 H Glucose 79 Calcium 8.7 Troponin I High Sens 47 Urine Color Yellow Urine Clarity Sl. Cloudy Urine pH 5.0 Ur Specific [place] 1.020 Urine Protein 30 H Urine Glucose (UA) Normal Urine Ketones 15 H Urine Occult Blood 250 H Urine Nitrite Negative Urine Bilirubin Negative Urine Urobilinogen Normal Ur Leukocyte Esterase Negative Urine RBC 25-50 SEEN Urine WBC 0 SEEN Ur Squamous Epith Cells 0-5 SEEN Urine Bacteria 1+ Urine Mucus 0 SEEN Radiography Diagnostic Testing: Clinical Impression(s) from Imaging Studies Brain CT 12/26/21 08:47 IMPRESSION: Chronic involutional changes of the brain. Electronically Signed: Scooby Parker MD at 10:23 EDT , Chest X-Ray 12/26/21 09:35 IMPRESSION: Mild increased markings at the left lung base with blunting of the left costophrenic angle suggests a mild left basilar atelectasis. Electronically Signed: Scooby Parker MD at 9:52 EDT , 1 view chest x-ray obtained interpreted by myself no acute disease process. Radiology felt there was blunting of the left costophrenic angle suggesting of left basilar atelectasis. EKG Initial EKG: Attestation: I personally reviewed and interpreted this EKG as follows: Comments: Sinus rhythm with occasional PACs and a right bundle branch block with a ventricular rate of 92 bpm Discharge Plan Triage Chief Complaint: Fall ED Provider: Karmen Olivia Dx/Rx/DC Orders Clinical Impression: Fall, COVID-19 Instructions: Caring for Someone Who Has COVID-19, ED Mechanical Fall Prescriptions: New Paxlovid (EUA) 300 mg (150 mg x 2)-100 mg tablets,dose pack See Rx Instructions .ROUTE .COMPLEX Qty: 30 0RF Rx Instructions: take TWO 150 mg tablets of nirmatrelvir with ONE 100 mg tablet of ritonavir twice daily for 5 days No Action atorvastatin 10 MG tablet 10 mg PO DAILY amlodipine [Norvasc] 2.5 MG tablet 10 mg PO DAILY tamsulosin [Flomax] 0.4 MG capsule 0.4 mg PO QHS polyethylene glycol 3350 238 GM powder 17 gm PO DAILY PRN (Reason: Constipation) Label Comments: TAKE ONE capful (17gm) mixed in liquid ONCE DAILY buspirone 5 mg Tablet 5 mg PO BID sennosides [senna] 8.6 mg Tablet 17.2 mg PO DAILY donepezil [Aricept] 10 mg Tablet 10 mg PO DAILY ketoconazole 1 % Shampoo 1 applic TOPICAL Q3D memantine 5 mg Tablet 5 mg PO BID acetaminophen 325 mg Capsule 650 mg PO Q4H PRN (Reason: pain/fever) Primary Care Provider: Vlad Quigley Referrals: Vlad Quigley MD [Primary Care Provider] - 5-7 Days Disposition Disposition: Home, Self Care
[2021-12-26 09:19] LABS: Mucous, Urine 0 SEEN /hpf (<or=2+); White Blood Cells 0 SEEN /hpf (0-5)
[2021-12-26 09:20] LABS: Color, Urine Yellow (Yellow); Glucose, Dipstick Normal (Normal); Ketone-Dipstick 15 mg/dl (Negative); Leukocyte Esterase-Dipstick Negative /ul (Negative); Nitrite-Dipstick Negative (Negative); Occult Blood-Urine 250 /ul (Negative); Protein-Dipstick 30 mg/dl (Negative); Urine Bilirubin Dipstick Negative (Negative); Urine Clarity Sl. Cloudy (Clear); Urine Urobilinogen Normal (Normal)
[2021-12-26] MEDS: 0.9% Normal Saline 1,000 ML 150 ML IV (09:32)
[2021-12-26 09:33] LABS: Absolute Lymphocyte Count 0.51 X10^3/uL (0.83-4.51); Absolute Neutrophil Count 7.1 X10^3/uL (2.0-7.7); Basophil# 0.01 X10^3/uL; Basophil% 0.1 % (0-1); Hematocrit 43.7 % (40-54); Hemoglobin 14.4 g/dL (13.0-16.5); Lymphocyte # 0.51 X10^3/ul (0.83-4.51); Lymphocyte % 5.9 % (19-41); Mean Corpuscular Hgb 31.2 pg (27.0-32.0); Mean Corpuscular Volume 94.8 fL (80-94); Mean Platelet Vol. 9.6 fl (6.2-12.0); Monocyte% 11.5 % (0-10); NRBC Flagged by Analyzer 0 % (0-5); Neutrophil # 7.14 X10^3/uL (2.7-7.7); Neutrophil % 82.2 % (47-70); POSITIVE DIFFERENTIAL YES; Platelet Count 158 K/mm3 (150-450); RBC Distribution Width CV 13.1 % (11.6-14.6); RBC Distribution Width SD 45.4 fl (35.1-43.9); Red Blood Count 4.61 M/mm3 (4.6-6.2); White Blood Count 8.7 K/mm3 (4.4-11.0)
[2021-12-26 09:33] LABS: Bacteria 1+ /hpf (None Seen); Red Blood Cells-Urine 25-50 SEEN /hpf (0-5); Squamous Epithelial Cells - UA 0-5 SEEN /hpf (0-5)
--- NOTE | 2021-12-26 09:35 | RAD_ITS ---
STUDY: X-RAY CHEST REASON FOR EXAM: Male, 81 years old. Cough TECHNIQUE: Single AP portable view of the chest. COMPARISON: Comparison is made with prior study dated 06/19/2021. FINDINGS: EKG electrodes are seen. Mild increased markings at the left lung base with blunting of the left costophrenic angle. There is no demonstrated pleural abnormality. Normal size heart. Normal mediastinum and marvin. Normal visualized pulmonary arteries. There is atherosclerotic tortuosity of the aortic arch and descending thoracic aorta. There are diffuse degenerative changes of the visualized thoracic spine. There is degenerative osteoarthritis of the bilateral shoulders. There is no demonstrated abnormality of the visualized soft tissue structures of the upper abdomen. RAD/Chest 1 View (Portable) IMPRESSION: Mild increased markings at the left lung base with blunting of the left costophrenic angle suggests a mild left basilar atelectasis. Electronically Signed: Scooby Parker MD at 9:52 EDT ,
[2021-12-26 09:39] LABS: Differential Indicated SCAN CRITERIA MET
--- NOTE | 2021-12-26 09:43 | ED.RN ---
attempted to call [facility], no answer on cell. work number states that it is not working.
[2021-12-26 09:51] LABS: Anion Gap 9 (5-15); BUN 27 mg/dL (7-18); BUN/Creat Ratio 20.3 RATIO (10-20); Calcium,Total 8.7 mg/dL (8.5-10.1); Chloride 108 mmol/L (98-107); Creatinine, Serum 1.33 mg/dL (0.70-1.30); EST Glomerular Filtration Rate 55 mL/min (>60); Est Glom Filt Rate - Afr Amer 66 mL/min (>60); Estimated Creatinine Clearance 41.43 ml/min; Glucose 79 mg/dL (74-106); Potassium 3.8 mmol/L (3.5-5.1); Sodium Level 141 mmol/L (136-145); Troponin-I HS 47 pg/mL (3.0-78.0)
[2021-12-26] MEDS: Ceftriaxone 1 GM/50 ML BAG IV (10:15)
[2021-12-26 10:29] LABS: CPK Total, Creatine Kinase 1279 U/L (39-308)
[2021-12-26 12:19] LABS: CPK Total, Creatine Kinase 1298 U/L (39-308)
[2021-12-26 12:25] VITALS: BP 117/60; PULSE 75; RESP 18; O2SAT 94
== END 2021-12-26 13:11 | disposition home or self-care (01) ==
PROVIDERS: Emergency Provider Emergency Medicine; PCP Family Medicine; Visit Provider Emergency Medicine
DX: U07.1 COVID-19 (principal); S50.312A Abrasion of left elbow, initial encounter; R09.02 Hypoxemia; E78.5 Hyperlipidemia, unspecified; I10 Essential (primary) hypertension; W19.XXXA Unspecified fall, initial encounter; Y92.099 Unspecified place in other non-institutional residence as the place of occurrence of the external cause; Z79.899 Other long term (current) drug therapy; Z87.891 Personal history of nicotine dependence
CPT/HCPCS: 70450; 71045; 80048; 81001; 82550; 84484; 85025; 87086; 87088; 87811; 93005; 96361; 96365; 99284; 99285

== ENCOUNTER 2021-12-26 14:58 | Emergency (ER) | payer MEDICARE, SELFPAY ==
[2021-12-26] VITALS (8 sets, daily range): BP systolic 115–154; BP diastolic 83–100; PULSE 68–77; RESP 14–19; TEMP 36.4–36.6; O2SAT 92–100; BMI 26.4
--- NOTE | 2021-12-26 15:13 | EDS_ITS ---
HPI History of Present Illness Chief Complaint: Shortness of Breath Informant: patient Narrative Narrative: Patient represents with a report of a hypoxic sewed at the residential after he returned from his visit today. I do not have the details of this. There were not details sent in. We will try to obtain more details of this event. Patient states he feels fine. He is not having dyspnea. He has no chest pain. No head pain no pain anywhere. He feels fine. He does have a history of dementia. However, he knows it is 2021. He knows his age. He states he lives at the pending sale to [facility] which is accurate. He thought Selena was the president rather than Caden. Overall, patient has no complaints and is relatively alert despite a history of dementia. We have a report of transient episode of hypoxia. He is now running 94 to 96% saturation on room air. [facility] Medical History Benign prostatic hyperplasia Constipation Dementia Former tobacco use Hyperlipidemia Hypertension Malignant neoplasm of prostate Home Medications amlodipine 2.5 mg tablet (Norvasc) 10 mg PO DAILY 02/01/18 [History Last Taken Unknown] atorvastatin 10 mg tablet 10 mg PO DAILY 02/01/18 [History Last Taken Unknown] tamsulosin 0.4 mg capsule (Flomax) 0.4 mg PO QHS 02/01/18 [History Last Taken Unknown] polyethylene glycol 3350 17 gram/dose oral powder 17 gm PO DAILY PRN Constipation 01/28/19 [History Last Taken Unknown] acetaminophen 325 mg capsule 650 mg PO Q4H PRN pain/fever 06/19/21 [History Last Taken Unknown] buspirone 5 mg tablet 5 mg PO BID 06/19/21 [History Last Taken Unknown] donepezil 10 mg tablet (Aricept) 10 mg PO DAILY 06/19/21 [History Last Taken Unknown] ketoconazole 1 % shampoo 1 applic topical Q3D 06/19/21 [History Last Taken Unknown] memantine 5 mg tablet 5 mg PO BID 06/19/21 [History Last Taken Unknown] sennosides 8.6 mg tablet (senna) 17.2 mg PO DAILY 06/19/21 [History Last Taken Unknown] nirmatrelvir 300 mg (150 mg x2)-ritonavir 100 mg tablet,dose pack(EUA) (Paxlovid) See Rx Instructions PO .COMPLEX #30 tabs 12/26/21 [Rx Last Taken Unknown] Allergy/AdvReac Type Severity Reaction Status Date / Time No Known Allergies Allergy Verified 12/26/21 15:06 Family History Mother Cancer Hx Breast CA. Father MVA (motor vehicle accident) at a young age following severe complications with MVA. Surgical History S/P appendectomy Social History housing: assisted living facility Smoking Status: Former smoker how long ago did patient quit smoking: Quit 20-30 years prior. alcohol intake: never substance use type: does not use ROS ROS ED Constitutional Constitutional ED: Denies fever(s) ENT ENT ED: Denies rhinorrhea or sore throat Cardiovascular Cardiovascular: Denies chest pain Respiratory/Chest Respiratory/Chest: Reports other Details: See history of present illness peer ; Denies dyspnea Gastrointestinal Gastrointestinal: Denies abdominal pain, diarrhea or vomiting Musculoskeletal Musculoskeletal: Denies arthralgias or myalgias Integumentary Denies rash Neurologic Neurologic: Denies headache(s) Hematologic/Lymphatic Hematologic/Lymphatic: Denies easy bruising Allergic/Immunologic Allergic/Immunologic ED: Denies urticaria EXAM Physical Exam Const Vital Signs: 12/26/21 15:00 12/26/21 15:05 12/26/21 15:32 Temperature 97.5 F L 97.5 F L Temperature Source Oral Oral Pulse Rate 68 68 Respiratory Rate 14 17 Respiratory Effort Respiratory Depth Respiratory Pattern Blood Pressure 154/87 H 154/87 H Blood Pressure Mean 109 109 Pulse Ox 96 93 92 Oxygen Delivery Method Room Air Room Air Room Air 12/26/21 15:48 Temperature Temperature Source Pulse Rate Respiratory Rate Respiratory Effort Normal Non-Labored Respiratory Depth Normal Respiratory Pattern Normal Blood Pressure Blood Pressure Mean Pulse Ox Oxygen Delivery Method Room Air Positive well nourished HEENT Reports moist mucous membranes Eyes Negative for EOMs intact bilaterally Eyes Narrative: Pupils are small and about 1 and half to 2 mm but equal. General Eye ED: Negative for scleral icterus Neck no JVD Chest Wall inspection of chest normal Resp normal respiratory effort and clear to auscultation bilaterally Resp Narrative: Breathing seems easy and unlabored. No notably coarse breath sounds. Oxygen is normal on room air. Cardio regular rate and regular rhythm GI normal to inspection, nondistended, normoactive bowel sounds and non-tender Back/Spine no CVA tenderness Extremity General Extremety ED: Negative for edema or tenderness General Extremity: Negative for edema Neuro Neuro Narrative: Patient is oriented to person year. He states he lives at the pending sale to [facility]. He did not know that he was currently in [place] emergency department. He thought Selena was the president rather than Caden. Considering he is in a residential for advanced dementia his alertness is pretty good. However, he does have some global generalized weakness. I do not find any focal weakness. Psych mental status grossly normal Attitude: No agitated Mood & Affect: Negative for anxious Skin no rashes or lesions noted MDM MDM MDM Narrative Medical decision making narrative: Patient's x-ray shows no significant change. There are minimal markings at the bases. This is more likely atelectasis from laying in bed. Patient is not coughing. We have had him on room air for almost 2 hours now. His lowest oxygen level was 91%. This is even while he is sound asleep. We attempted to walk him but he is very weak. He has overall generalized weakness. But no focal weakness. This is likely from the COVID. He had extensive work- up today. I am not seeing any indication to do further work-up. I discussed the case with the nursing facility. They state that the patient had low oxygen levels in the squad on the way back to the nursing facility. Therefore he was placed on 6 L. They just kept him on 6 L at the residential and never had desaturation at that level. They contacted the power of patent prosecution attorney who re commended they transfer him back to the hospital. I talked to the power of patent prosecution attorney. I explained that were not able to repeat this hypoxic episode. He was fine with him going back to the residential as long as they are able to care for him. I find out that they did switch him from assisted living to longterm today already so he will be in longterm facility. This is good because he really needs that nursing care because of his generalized weakness. But he is not hypoxic. It may not be unreasonable to put him on a couple liters at night because he may occasionally desaturate but he is not having dyspnea, marked chest x-ray changes, or documented hypoxia here over 2 hours. It is certainly possible he will get more sick in the next week or so because of the COVID. However, at this point there is no indication for admission. I talked again to the nursing facility to update on this and they are comfortable with this plan. Radiography Diagnostic Testing: Clinical Impression(s) from Imaging Studies Chest X-Ray 12/26/21 15:15 IMPRESSION: New increased markings at the right lung base. Stable increased markings at the left lung base. Electronically Signed: Scooby Parker MD at 15:33 EDT , Discharge Plan Triage Chief Complaint: Shortness of Breath ED Provider: Kris Viveros Dx/Rx/DC Orders Clinical Impression: COVID-19 Instructions: Caring for Someone Who Has COVID-19 Prescriptions: No Action atorvastatin 10 MG tablet 10 mg PO DAILY amlodipine [Norvasc] 2.5 MG tablet 10 mg PO DAILY tamsulosin [Flomax] 0.4 MG capsule 0.4 mg PO QHS polyethylene glycol 3350 238 GM powder 17 gm PO DAILY PRN (Reason: Constipation) Label Comments: TAKE ONE capful (17gm) mixed in liquid ONCE DAILY buspirone 5 mg Tablet 5 mg PO BID sennosides [senna] 8.6 mg Tablet 17.2 mg PO DAILY donepezil [Aricept] 10 mg Tablet 10 mg PO DAILY ketoconazole 1 % Shampoo 1 applic TOPICAL Q3D memantine 5 mg Tablet 5 mg PO BID acetaminophen 325 mg Capsule 650 mg PO Q4H PRN (Reason: pain/fever) Paxlovid (EUA) 300 mg (150 mg x 2)-100 mg tablets,dose pack See Rx Instructions .ROUTE .COMPLEX Qty: 30 0RF Rx Instructions: take TWO 150 mg tablets of nirmatrelvir with ONE 100 mg tablet of ritonavir twice daily for 5 days Primary Care Provider: Vlad Quigley Referrals: Vlad Quigley MD [Primary Care Provider] - 1 Week if not improving Disposition Disposition: Retirement Facility
--- NOTE | 2021-12-26 15:15 | RAD_ITS ---
STUDY: X-RAY CHEST REASON FOR EXAM: Male, 81 years old. Hypoxia history TECHNIQUE: Single AP portable view of the chest. COMPARISON: Comparison is made with prior study dated 12/26/2021 at 9:33 AM. FINDINGS: EKG electrodes are seen. New increased markings at the right lung base suggestive of either early infiltrate and/or atelectasis. Stable mild increased markings at the left lung base with blunting of left costophrenic angle. There is mild cardiac enlargement. Normal mediastinum and marvin. Normal visualized pulmonary arteries. There is atherosclerotic calcification of the aortic arch with tortuosity. There are diffuse degenerative changes of the visualized thoracic spine. There is degenerative osteoarthritis of the bilateral shoulders. There is no demonstrated abnormality of the visualized soft tissue structures of the upper abdomen. RAD/Chest 1 View (Portable) IMPRESSION: New increased markings at the right lung base. Stable increased markings at the left lung base. Electronically Signed: Scooby Parker MD at 15:33 EDT ,
== END 2021-12-26 18:40 | disposition skilled nursing facility (03) ==
PROVIDERS: Emergency Provider Emergency Medicine; PCP Family Medicine; Visit Provider Emergency Medicine
DX: U07.1 COVID-19 (principal); E78.5 Hyperlipidemia, unspecified; I10 Essential (primary) hypertension; R09.02 Hypoxemia; Z87.891 Personal history of nicotine dependence; Z79.899 Other long term (current) drug therapy
CPT/HCPCS: 71045

== ENCOUNTER 2022-01-17 14:44 | Emergency (ER) | payer MEDICARE, SELFPAY ==
[2022-01-17 14:45] VITALS: BP 130/75; PULSE 69; RESP 16; TEMP 36.3; O2SAT 97; BMI 27.6
--- NOTE | 2022-01-17 15:13 | CT_ITS ---
INDICATION: confusion EXAMINATION: CT BRAIN - CT Head or Brain W/O Contrast Injection TECHNIQUE: Multiple axial images were obtained of the head without intravenous contrast. A radiation dose optimization technique was used for this scan. IV Contrast dosage and agent: None. COMPARISON: 12/26/2021 FINDINGS: Areas of low attenuation are visualized in the periventricular and subcortical white matter that demonstrate no significant change in comparison to the prior study consistent with chronic microvascular disease. Chronic lacunar infarcts visualized in bilateral basal ganglia. No evidence of acute territorial infarct is seen. Mild prominence of the ventricles and sulci is visualized demonstrating no significant progression in comparison to the prior study consistent with chronic atrophic brain changes. No evidence of parenchymal hemorrhages or contusions. No evidence of intra or extra-axial fluid collection is seen. No evidence of intracranial mass or mass effect, no evidence of midline shift is seen. No structural midline barium abnormality is seen. Posterior Fossa structures are unremarkable. Circumferential mucosal thickening visualized in the paranasal sinuses, unremarkable aeration of the mastoid air cells.. No discrete lytic or blastic abnormalities. Both globes, extraocular muscles, optic nerves and retrobulbar fat appear unremarkable. CT/Brain/Head without Contrast IMPRESSION: No evidence of acute intracranial pathology is seen. Chronic atrophic brain changes and chronic microvascular disease is seen. Electronically Signed: Steven Cool MD at 15:48 EDT Reading Location ID and State: [facility] / [place] Tel , Service support ,
--- NOTE | 2022-01-17 15:14 | EKG12_ITS ---
Test Reason : CONFUSED Blood Pressure : / mmHG Vent. Rate : 063 BPM Atrial Rate : 063 BPM P-R Int : 180 ms QRS Dur : 130 ms QT Int : 456 ms P-R-T Axes : 036 -49 011 degrees QTc Int : 466 ms Normal sinus rhythm Left axis deviation Right bundle branch block Abnormal ECG Confirmed by GENE WALSH, RYAN ([id number]), sound editor DORON RAYMOND ([id number]) on 01/20/2022 9:36:34 AM Referred By: Confirmed By:RYAN MILLS MD
--- NOTE | 2022-01-17 15:15 | EX.ED.DYSGE1 ---
HPI History of Present Illness Chief Complaint: Confusion Informant: patient and family Onset/Context/Timing Onset: Weeks (3-4) Context: Gradual Onset Timing: Continuous Quality: confused Current Severity: Severe Maximum Severity: Severe Worsened by: unk Relieved by: nothing Associated Symptoms Associated Symptoms: rear end hurting, hallucinating Narrative Narrative: Patient was demented before he got COVID 3 or 4 weeks ago, daughter states it has been progressively worsening since then. Was in assisted living prior to getting COVID and has been in half-way since then. He has been more confused than usual ever since, over the last couple days he is starting to hallucinate according to [facility] staff, according to the daughter. He has complained of soreness on his buttocks/rear end for longer, maybe 1 or 2 months. He has had some minor falls that he was seen here in the ER for, the last of which was about a month ago when he was diagnosed with COVID. He got over COVID. He has no other complaints except except for the pain in his rear end. [facility] Medical History Benign prostatic hyperplasia Constipation Dementia Former tobacco use Hyperlipidemia Hypertension Malignant neoplasm of prostate Home Medications atorvastatin 10 mg tablet 10 mg PO QHS cholesterol 02/01/18 [History Last Taken 01/16/22] tamsulosin 0.4 mg capsule (Flomax) 0.4 mg PO QHS PROSTATE 02/01/18 [History Last Taken 01/16/22] polyethylene glycol 3350 17 gram/dose oral powder 17 gm PO DAILY PRN Constipation 01/28/19 [History Last Taken Unknown] buspirone 5 mg tablet 5 mg PO BID ANXIETY 06/19/21 [History Last Taken 01/17/22] donepezil 10 mg tablet (Aricept) 10 mg PO DAILY DEMENTIA 06/19/21 [History Last Taken 01/17/22] ketoconazole 1 % shampoo 1 applic topical SUMOTH ITCH 06/19/21 [History Last Taken 01/16/22] memantine 5 mg tablet 5 mg PO BID DEMENTIA 06/19/21 [History Last Taken 01/17/22] sennosides 8.6 mg tablet (senna) 17.2 mg PO DAILY CONSTIPATION 06/19/21 [History Last Taken 01/17/22] acetaminophen 325 mg tablet 650 mg PO Q4H PRN Pain 01/17/22 [History Last Taken 01/01/22] amlodipine 10 mg tablet 10 mg PO DAILY bp 01/17/22 [History Last Taken 01/17/22] nut tx, lact-reduced, iron 0.09 gram-2.25 kcal/mL oral liquid (Boost VHC) 120 ml PO BID supplement 01/17/22 [History Last Taken 01/17/22] Allergy/AdvReac Type Severity Reaction Status Date / Time No Known Allergies Allergy Verified 01/17/22 14:52 Family History Mother Cancer Hx Breast CA. Father MVA (motor vehicle accident) at a young age following severe complications with MVA. Surgical History S/P appendectomy Social History housing: assisted living facility Smoking Status: Former smoker how long ago did patient quit smoking: Quit 20-30 years prior. alcohol intake: never substance use type: does not use ROS ROS ED Review of Systems ROS Unobtainable: due to mental status ENT ENT ED: Denies ear pain Cardiovascular Cardiovascular: Denies chest pain Respiratory/Chest Respiratory/Chest: Denies cough or dyspnea Gastrointestinal Gastrointestinal: Denies abdominal pain or nausea Genitourinary Genitourinary ED: Reports other Details: pt indicates that it hurts in genitalia Musculoskeletal Musculoskeletal: Reports other Details: back pain pointing to rear/buttocks ; Denies neck pain Integumentary Denies abscess Neurologic Neurologic: Denies headache(s) or paresthesias Psychiatric Psychiatric: Reports hallucinations EXAM Physical Exam Const Vital Signs: 01/17/22 14:45 01/17/22 14:58 01/17/22 16:56 Temperature 97.3 F L Temperature Source Temporal Pulse Rate 69 63 Respiratory Rate 16 16 Respiratory Effort Normal Respiratory Pattern Normal Blood Pressure 130/75 H 132/112 H Blood Pressure Mean 93 118 Pulse Ox 97 95 Oxygen Delivery Method Room Air Room Air 01/17/22 18:00 Temperature Temperature Source Pulse Rate 67 Respiratory Rate 11 L Respiratory Effort Respiratory Pattern Blood Pressure 120/11 L Blood Pressure Mean 47 Pulse Ox 95 Oxygen Delivery Method Room Air Positive well nourished and well developed General Appearance ED: well developed and NAD HEENT Reports moist mucous membranes normocephalic and atraumatic Eyes PERRL and EOMs intact bilaterally Neck full ROM, no lymphadenopathy and supple Resp normal respiratory effort and clear to auscultation bilaterally Cardio regular rate, regular rhythm and no murmurs GI non-tender and non-distended Auscultation: normoactive bowel sounds Palpation: soft Narrative: Scrotum is mildly erythematous, there is no edema or mass, both testicles are tender with very mild palpation diffusely. No perineal tenderness or erythema or subcutaneous emphysema. Back/Spine no CVA tenderness Back/Spine Narrative: No bony tenderness throughout the spine including the coccyx, but just distal to this there is a sacral pressure sore with just the start of very superficial breakdown in 3 punctate areas. No bleeding, no discharge, no surrounding cellulitis or signs of infection there. General Back: other FROM Cervical Spine: Negative for cervical spine tenderness Thoracic Spine / Upper Back: Negative for thoracic spinal tenderness Lumbar Spine / Lower Back: Negative for lumbar spinal tenderness Extremity normal to inspection General Extremety ED: Negative for edema, pulses abnormal or tenderness General Extremity: Negative for edema or pulses abnormal Neuro CN's II-XII intact bilaterally and no sensory deficits noted Sensorium / Orientation: awake, alert and orientation impaired Motor Exam: strength 5/5 throughout Psych Psych Narrative: Limited evaluation, not actively hallucinating, but answers ROS questions appropriately Skin no rashes or lesions noted and no wounds MDM MDM MDM Narrative Medical decision making narrative: Patient was given slow IV fluids for several hours while he was here. Sodium level was a little elevated, he has a slightly elevated BUN, but his specific gravity on his urine is only 1.010. Other than the bedsore on his bottom, I do not see any other acute abnormality or reason to admit him at this time since he is in a skilled facility. His vital signs have remained stable and normal, chest x-ray 1 view on my interpretation normal and radiology in agreement, his testicular ultrasound shows normal testicles and no other acute abnormality, and his CT head shows nothing acute. We cleansed his wound and dressed it with a pressure sore dressing, and instructed to do the same at the [facility], nursing here had him on his side where he slept comfortably while waiting for work-up to return and reevaluation. Lab Data Attestation: I reviewed the patient's lab results. Labs: Laboratory Results - last 24 hr 01/17/22 01/17/22 01/17/22 14:55 14:55 16:55 WBC 5.7 RBC 3.82 L Hgb 11.9 L Hct 36.8 L MCV 96.3 H MCH 31.2 MCHC 32.3 RDW Std Deviation 46.2 H RDW Coeff of Damaris 13.0 Plt Count 225 MPV 9.7 Immature Gran % (Auto) 0.400 Neut % (Auto) 66.0 Lymph % (Auto) 19.0 Hubbard % (Auto) 11.6 H Eos % (Auto) 2.8 Baso % (Auto) 0.2 Absolute Neuts (auto) 3.8 Absolute Lymphs (auto) 1.08 Nucleated RBC % 0 Sodium 146 H Potassium 3.9 Chloride 112 H Carbon Dioxide 28.0 Anion Gap 6 BUN 20 H Creatinine 1.19 Estim Creat Clear Calc 44.75 Est GFR (MDRD) Af Amer 75 Est GFR (MDRD) Non-Af 62 BUN/Creatinine Ratio 16.8 Glucose 101 Calcium 8.9 Troponin I High Sens 9 Urine Color Yellow Urine Clarity Clear Urine pH 7.0 Ur Specific [place] 1.010 Urine Protein Negative Urine Glucose (UA) Normal Urine Ketones Negative Urine Occult Blood 10 H Urine Nitrite Negative Urine Bilirubin Negative Urine Urobilinogen Normal Ur Leukocyte Esterase Negative Urine RBC 0-5 SEEN Urine WBC 0-5 SEEN Ur Squamous Epith Cells 0 SEEN Urine Bacteria 0 SEEN Urine Mucus 0 SEEN Radiography Diagnostic Testing: Clinical Impression(s) from Imaging Studies Brain CT 01/17/22 15:13 IMPRESSION: No evidence of acute intracranial pathology is seen. Chronic atrophic brain changes and chronic microvascular disease is seen. Electronically Signed: Steven Cool MD at 15:48 EDT Reading Location ID and State: [facility] / ID Tel , Service support , Testicular Ultrasound 01/17/22 15:18 IMPRESSION: 1. Normal bilateral testicles for age. 2. No testicular cystic or solid mass lesions. 3. No testicular torsion. 4. Bilateral epididymal simple cysts measuring in greatest diameter 2.1 cm and the right epididymis and also 2.1 cm and the left epididymis. 5. No evidence of epididymal solid mass lesions. 6. No evidence of hydroceles. 7. No demonstration of varicoceles, but the patient was unable to perform an adequate Valsalva maneuver. Electronically Signed: Brooks Vivas MD at 16:37 EDT , Chest X-Ray 01/17/22 15:32 IMPRESSION: No radiographic evidence of acute cardiopulmonary disease. Electronically Signed: Steven Cool MD at 15:50 EDT , EKG Initial EKG: Attestation: I personally reviewed and interpreted this EKG as follows: Interpretation: Sinus Rhythm, No Acute Injury Pattern and LAFB Discharge Plan Triage Chief Complaint: Confusion Other Complaint: Alt LOC ED Provider: Asad Carey Dx/Rx/DC Orders Clinical Impression: Persistent fatigue after COVID-19, Decubitus ulcer of sacral area, Confusion, Dementia Instructions: Wound Care, Pressure Injury Dc Prescriptions: No Action atorvastatin 10 MG tablet 10 mg PO QHS tamsulosin [Flomax] 0.4 MG capsule 0.4 mg PO QHS polyethylene glycol 3350 238 GM powder 17 gm PO DAILY PRN (Reason: Constipation) Label Comments: TAKE ONE capful (17gm) mixed in liquid ONCE DAILY buspirone 5 mg Tablet 5 mg PO BID sennosides [senna] 8.6 mg Tablet 17.2 mg PO DAILY donepezil [Aricept] 10 mg Tablet 10 mg PO DAILY ketoconazole 1 % Shampoo 1 applic TOPICAL SUMOTH memantine 5 mg Tablet 5 mg PO BID acetaminophen 325 mg Tablet 650 mg PO Q4H PRN (Reason: Pain) amlodipine 10 mg Tablet 10 mg PO DAILY Boost VHC 0.09-2.25 gram-kcal/mL Liquid 120 ml PO BID Primary Care Provider: Vlad Quigley Referrals: Vlad Quigley MD [Primary Care Provider] - 3-5 Days Activity Restrictions/Additional Instructions: Patient needs regular wound care, ray inspections, and dressing changes that are appropriate for a pressure ulcer on his sacrum. No infection at this time, no other acute abnormality on all of his testing today. Disposition Disposition: Home, Self Care
--- NOTE | 2022-01-17 15:18 | US_ITS ---
STUDY: SCROTUM/TESTICULAR ULTRASOUND EXAMINATION AT 1541 HOURS ON 01/17/2022 REASON FOR EXAM: 81-year-old male with bilateral testicular pain. TECHNIQUE: Ultrasound evaluation of the scrotum was performed with color Doppler and static kendall-scale imaging. COMPARISON: None. FINDINGS: The right testicle measures 3.2 cm x 3.0 cm x 2.2 cm and left testicle measures 3.0 cm x 3.5 cm x 3.1 cm. The left testicle is slightly enlarged, compared to the right. There is arterial and venous blood flow in both testicles. There is no evidence of testicular torsion. There is no evidence of testicular cystic or solid mass lesions. There are some very mild heterogeneous changes in both testicles, compatible with aging. There is a 2.1 cm x 1.8 cm 1.6 cm right epididymal cyst. There is a 1.3 cm x 1.3 cm x 1.3 cm left epididymal cyst. There is no evidence of epididymal solid mass lesions. There is no evidence of hydroceles. No distinct evidence of a varicocele, but the patient could not perform an adequate Valsalva maneuver. US/Testicular with Arterial Flow IMPRESSION: 1. Normal bilateral testicles for age. 2. No testicular cystic or solid mass lesions. 3. No testicular torsion. 4. Bilateral epididymal simple cysts measuring in greatest diameter 2.1 cm and the right epididymis and also 2.1 cm and the left epididymis. 5. No evidence of epididymal solid mass lesions. 6. No evidence of hydroceles. 7. No demonstration of varicoceles, but the patient was unable to perform an adequate Valsalva maneuver. Electronically Signed: Brooks Vivas MD at 16:37 EDT ,
[2022-01-17 15:22] LABS: Absolute Lymphocyte Count 1.08 X10^3/uL (0.83-4.51); Absolute Neutrophil Count 3.8 X10^3/uL (2.0-7.7); Basophil# 0.01 X10^3/uL; Basophil% 0.2 % (0-1); Eosinophil# 0.16 X10^3/uL; Eosinophils% 2.8 % (0-5); Hematocrit 36.8 % (40-54); Hemoglobin 11.9 g/dL (13.0-16.5); Lymphocyte # 1.08 X10^3/ul (0.83-4.51); Mean Corp Hgb Conc 32.3 g/dL (32-36); Mean Corpuscular Hgb 31.2 pg (27.0-32.0); Mean Corpuscular Volume 96.3 fL (80-94); Mean Platelet Vol. 9.7 fl (6.2-12.0); Monocyte# 0.66 X10^3/uL; Monocyte% 11.6 % (0-10); NRBC Flagged by Analyzer 0 % (0-5); Neutrophil # 3.76 X10^3/uL (2.7-7.7); Platelet Count 225 K/mm3 (150-450); RBC Distribution Width SD 46.2 fl (35.1-43.9); Red Blood Count 3.82 M/mm3 (4.6-6.2); White Blood Count 5.7 K/mm3 (4.4-11.0)
[2022-01-17] MEDS: 0.9% Normal Saline 1,000 ML 150 ML IV (15:27)
--- NOTE | 2022-01-17 15:32 | RAD_ITS ---
INDICATION: weakness EXAMINATION/TECHNIQUE: X-RAY - XR Chest 1 View COMPARISON: None 12/26/2021.. FINDINGS: Poor inspiratory effort is seen. LINES/DEVICES: None. LUNGS: Mild prominence of the bronchovascular markings is visualized bilaterally but no evidence of focal infiltrate or consolidation. The costophrenic angles are clear no evidence of pleural effusion is seen. No pneumothorax. MEDIASTINUM AND CARDIOVASCULAR STRUCTURES: Mild prominence of the cardiac mediastinal silhouette with tortuosity of the thoracic aorta is seen. BONES AND SOFT TISSUES: Degenerative bone changes are seen. RAD/Chest 1 View (Portable) IMPRESSION: No radiographic evidence of acute cardiopulmonary disease. Electronically Signed: Steven Cool MD at 15:50 EDT ,
[2022-01-17 15:40] LABS: Anion Gap 6 (5-15); BUN 20 mg/dL (7-18); BUN/Creat Ratio 16.8 RATIO (10-20); Calcium,Total 8.9 mg/dL (8.5-10.1); Chloride 112 mmol/L (98-107); Creatinine, Serum 1.19 mg/dL (0.70-1.30); EST Glomerular Filtration Rate 62 mL/min (>60); Est Glom Filt Rate - Afr Amer 75 mL/min (>60); Estimated Creatinine Clearance 44.75 ml/min; Glucose 101 mg/dL (74-106); Potassium 3.9 mmol/L (3.5-5.1); Sodium Level 146 mmol/L (136-145); Troponin-I HS 9 pg/mL (3.0-78.0)
[2022-01-17 16:56] VITALS: BP 132/112; PULSE 63; RESP 16; O2SAT 95
[2022-01-17 17:01] LABS: Mucous, Urine 0 SEEN /hpf (<or=2+); Squamous Epithelial Cells - UA 0 SEEN /hpf (0-5)
[2022-01-17 17:10] LABS: Color, Urine Yellow (Yellow); Glucose, Dipstick Normal (Normal); Ketone-Dipstick Negative (Negative); Leukocyte Esterase-Dipstick Negative /ul (Negative); Nitrite-Dipstick Negative (Negative); Occult Blood-Urine 10 /ul (Negative); Protein-Dipstick Negative (Negative); Urine Bilirubin Dipstick Negative (Negative); Urine Clarity Clear (Clear); Urine Urobilinogen Normal (Normal)
[2022-01-17 17:20] LABS: Red Blood Cells-Urine 0-5 SEEN /hpf (0-5); White Blood Cells 0-5 SEEN /hpf (0-5)
[2022-01-17 17:21] LABS: Bacteria 0 SEEN /hpf (None Seen)
[2022-01-17 18:00] VITALS: BP 120/11; PULSE 67; RESP 11; O2SAT 95
[2022-01-17 20:49] VITALS: BP 123/58; PULSE 63; PULSE 64; RESP 12; RESP 18; O2SAT 96
[2022-01-17 22:00] VITALS: BP 144/73; PULSE 68; RESP 15; O2SAT 96
[2022-01-18 00:06] VITALS: RESP 13; O2SAT 93
[2022-01-18 02:08] VITALS: RESP 16
--- NOTE | 2022-01-18 02:46 | NURSING ---
physicians called stating the eta has been pushed to 6:30am
[2022-01-18 06:13] VITALS: BP 132/60; PULSE 70; RESP 14
== END 2022-01-18 06:37 | disposition home or self-care (01) ==
PROVIDERS: Emergency Provider Emergency Medicine; PCP Family Medicine; Visit Provider Emergency Medicine
DX: R41.0 Disorientation, unspecified (principal); F02.80 Dementia in other diseases classified elsewhere, unspecified severity, without behavioral disturbance, psychotic disturbance, mood disturbance, and anxiety; I10 Essential (primary) hypertension; L89.159 Pressure ulcer of sacral region, unspecified stage; E78.5 Hyperlipidemia, unspecified; R53.83 Other fatigue; Z86.16 Personal history of COVID-19; Z87.891 Personal history of nicotine dependence; Z79.899 Other long term (current) drug therapy
CPT/HCPCS: 70450; 71045; 76870; 80048; 81001; 84484; 85025; 93005; 93976; 96360; 96361; 99285